=== PATIENT | male | born 1955 | race Caucasian/White ===

== ENCOUNTER 2016-09-08 10:23 | Inpatient (IN) | payer OTHER ==
[~2016-09-08] VITALS: Ht 188 cm; Wt 79.0 kg
[2016-09-08 10:27] VITALS: BP 144/83; PULSE 115; RESP 16; TEMP 97.8; O2SAT 98
[2016-09-08] MEDS ORDERED: SODIUM CHLOR 0.9% 1000 ML INJ 1,000 ML IV SCH (10:46)
--- NOTE | 2016-09-08 10:55 | PD ---
HPI Chief Complaint: GI Complaint Time Seen by Provider: 10:37 Travel History International Travel<30 days: No Contact w/Intl Traveler<30days: No Traveled to known affect area: No History of Present Illness HPI The patient is a 60-year-old male who presents to the emergency department for abdominal pain. The patient states he has a history of previous colostomy and constipation. The patient states he was eating well last week on Thursday, Thursday, Thursday. However, the patient swallowed a pill on and felt like the pill got stuck in the mid to distal esophageal area. The patient has some discomfort after that which has improved, however, is still present when he takes a deep breath. The patient is able to drink liquids and was able to eat crackers afterwards, however, notes decreased oral intake secondary to persistent abdominal pain. He also complains of constipation with decreased output through the colostomy bag, states his last output was last week on Thursday. The patient was seen in urgent care over the weekend and prescribed a medicine for constipation, however, he continues to be constipated. The patient's symptoms are moderate, he denies any associated nausea, vomiting, or diarrhea. PFSH Past Medical History Chemotherapy: Yes (COLON CA- colostomy) GERD: Yes Hypertension: Yes Social History Alcohol Use: Yes (daily) Tobacco Use: No Allergies-Medications (Allergen,Severity, Reaction): Coded Allergies: No Known Allergies (Unverified , 09/08/16) Reported Meds & Prescriptions Reported Meds & Active Scripts Active Reported Amlodipine (Amlodipine Besylate) 10 Mg Tab 10 Mg PO DAILY Review of Systems Except as stated in HPI: all other systems reviewed are Neg General / Constitutional: No: Fever Cardiovascular: Positive: Chest Pain or Discomfort (mid chest pain after swallowing a pill last ) Respiratory: No: Shortness of Breath Gastrointestinal: Positive: Abdominal Pain, Constipation, Changes in Bowel Habits, No: Nausea, Vomiting, Diarrhea Genitourinary: No: Decreased Urinary Output Neurologic: No: Dizziness Physical Exam Narrative GENERAL: Awake, alert, pleasant 60-year-old male who appears his stated age and is in no acute respiratory distress. SKIN: Warm and dry. HEAD: Atraumatic. Normocephalic. EYES: No injection or drainage. ENT: No nasal bleeding or discharge. Slightly dry mucous membranes. NECK: Trachea midline. No JVD. CARDIOVASCULAR: Regular rate and rhythm. No murmur appreciated. Heart rate in the 90s. RESPIRATORY: No accessory muscle use. Clear to auscultation. Breath sounds equal bilaterally. GASTROINTESTINAL: Abdomen soft, colostomy in place, no visible output in the colostomy bag. Apparent left-sided abdominal hernia. MUSCULOSKELETAL: No obvious deformities. No clubbing. No cyanosis. No edema. NEUROLOGICAL: Awake and alert. No obvious cranial nerve deficits. Motor grossly within normal limits. Normal speech. PSYCHIATRIC: Appropriate mood and affect; insight and judgment normal. Data Data Last Documented VS Vital Signs Date Time Temp Pulse Resp B/P Pulse Ox O2 Delivery O2 Flow Rate FiO2 09/08/16 12:15 100 09/08/16 10:39 18 09/08/16 10:27 97.8 115 144/83 Orders Complete Blood Count With Diff (09/08/16 10:46) Comprehensive Metabolic Panel (09/08/16 10:46) Lipase (09/08/16 10:46) Urinalysis - C+S If Indicated (09/08/16 10:46) Ct Abd/Pel W/O Iv Contrast (09/08/16 10:46) Iv Access Insert/Monitor (09/08/16 10:46) Ecg Monitoring (09/08/16 10:46) Oximetry (09/08/16 10:46) Sodium Chlor 0.9% 1000 Ml Inj (Ns 1000 M (09/08/16 10:46) Sodium Chloride 0.9% Flush (Ns Flush) (09/08/16 11:00) Morphine Inj (Morphine Inj) (09/08/16 12:30) Ondansetron Inj (Zofran Inj) (09/08/16 12:30) Sodium Chlor 0.9% 1000 Ml Inj (Ns 1000 M (09/08/16 12:30) Admit Order (Ed Use Only) (09/08/16 12:40) Labs Laboratory Tests Test 09/08/16 10:51 White Blood Count 23.2 TH/MM3 Red Blood Count 3.49 MIL/MM3 Hemoglobin 12.8 GM/DL Hematocrit 37.1 % Mean Corpuscular Volume 106.6 FL Mean Corpuscular Hemoglobin 36.6 PG Mean Corpuscular Hemoglobin 34.4 % Concent Red Cell Distribution Width 15.5 % Platelet Count 267 TH/MM3 Mean Platelet Volume 8.7 FL Neutrophils (%) (Auto) 88.6 % Lymphocytes (%) (Auto) 4.2 % Monocytes (%) (Auto) 7.0 % Eosinophils (%) (Auto) 0.1 % Basophils (%) (Auto) 0.1 % Neutrophils # (Auto) 20.6 TH/MM3 Lymphocytes # (Auto) 1.0 TH/MM3 Monocytes # (Auto) 1.6 TH/MM3 Eosinophils # (Auto) 0.0 TH/MM3 Basophils # (Auto) 0.0 TH/MM3 CBC Comment DIFF FINAL Differential Comment Sodium Level 130 MEQ/L Potassium Level 3.4 MEQ/L Chloride Level 94 MEQ/L Carbon Dioxide Level 24.3 MEQ/L Anion Gap 12 MEQ/L Blood Urea Nitrogen 6 MG/DL Creatinine 0.69 MG/DL Estimat Glomerular Filtration 116 ML/MIN Rate Random Glucose 126 MG/DL Calcium Level 8.4 MG/DL Total Bilirubin 0.6 MG/DL Aspartate Amino Transf 17 U/L (AST/SGOT) Alanine Aminotransferase 11 U/L (ALT/SGPT) Alkaline Phosphatase 143 U/L Total Protein 6.9 GM/DL Albumin 2.5 GM/DL Lipase 3814 U/L [facility] Medical Decision Making Medical Screen Exam Complete: Yes Emergency Medical Condition: Yes Medical Record Reviewed: Yes Interpretation(s) Laboratory Tests Test 09/08/16 10:51 White Blood Count 23.2 TH/MM3 Red Blood Count 3.49 MIL/MM3 Hemoglobin 12.8 GM/DL Hematocrit 37.1 % Mean Corpuscular Volume 106.6 FL Mean Corpuscular Hemoglobin 36.6 PG Mean Corpuscular Hemoglobin 34.4 % Concent Red Cell Distribution Width 15.5 % Platelet Count 267 TH/MM3 Mean Platelet Volume 8.7 FL Neutrophils (%) (Auto) 88.6 % Lymphocytes (%) (Auto) 4.2 % Monocytes (%) (Auto) 7.0 % Eosinophils (%) (Auto) 0.1 % Basophils (%) (Auto) 0.1 % Neutrophils # (Auto) 20.6 TH/MM3 Lymphocytes # (Auto) 1.0 TH/MM3 Monocytes # (Auto) 1.6 TH/MM3 Eosinophils # (Auto) 0.0 TH/MM3 Basophils # (Auto) 0.0 TH/MM3 CBC Comment DIFF FINAL Differential Comment Sodium Level 130 MEQ/L Potassium Level 3.4 MEQ/L Chloride Level 94 MEQ/L Carbon Dioxide Level 24.3 MEQ/L Anion Gap 12 MEQ/L Blood Urea Nitrogen 6 MG/DL Creatinine 0.69 MG/DL Estimat Glomerular Filtration 116 ML/MIN Rate Random Glucose 126 MG/DL Calcium Level 8.4 MG/DL Total Bilirubin 0.6 MG/DL Aspartate Amino Transf 17 U/L (AST/SGOT) Alanine Aminotransferase 11 U/L (ALT/SGPT) Alkaline Phosphatase 143 U/L Total Protein 6.9 GM/DL Albumin 2.5 GM/DL Lipase 3814 U/L Last Impressions Abdomen/Pelvis CT 09/08/16 1046 Signed Impressions: Service Date/Time: Thursday, September 08, 2016 11:55 - CONCLUSION: 1. Extensive inflammatory changes consistent with pancreatitis. There is some adjacent fluid present. Correlation with amylase/lipase levels are recommended. 2. Stomal hernia and left colostomy. No bowel obstruction. 3. Cecum is mildly prominent 4. Right pleural effusion and right basilar density likely atelectasis. Alvin Mccoy MD Differential Diagnosis Differential diagnosis includes esophageal foreign body, esophagitis, esophageal stricture, pancreatitis, gastritis, constipation, small bowel obstruction, ileus. Narrative Course IV was established, labs are drawn and sent, and the patient was placed on cardiac telemetry monitoring and continuous pulse oximetry monitoring. The patient was administered IV fluids. CT of the abdomen and pelvis was ordered to evaluate for possible partial small bowel obstruction. The patient's lipase was greater than 3800 consistent with pancreatitis. White count was elevated at 32.2. The patient was administered IV fluids, he originally declined pain medications. However, the patient was reassessed at 12:15 PM, he now had significant epigastric abdominal pain. Therefore, patient was administered morphine, Zofran, and a second liter of IV fluids. The patient denies any history of gallstones, however, does admit to drinking approximately 4 drinks per day, states he starts at 6 PM, and usually goes to bed at [address] results are consistent with pancreatitis, no evidence of obstruction. Patient will be admitted for acute pancreatitis for IV fluids and pain control. Physician Communication Physician Communication The on-call medical service was paged for admission. I discussed the patient with Dr. Puentes who agrees with admission. Diagnosis Primary Impression: Pancreatitis, alcoholic, acute Qualified Code: K85.20 - Alcohol-induced acute pancreatitis, unspecified complication status Admitting Information Admitting Physician Requests: Admit Condition: Stable Vern Shine MD Sep 08, 2016 10:54
[2016-09-08 11:12] LABS: AUTOMATED NEUTROPHIL # 20.6 TH/MM3 (1.8-7.7); BASOPHIL % 0.1 % (0.0-2.0); EOSINOPHIL % 0.1 % (0.0-4.0); HEMATOCRIT 37.1 % (39.0-51.0); HEMO FLAGS DIFF FINAL; LYMPH % 4.2 % (9.0-44.0); MEAN CELL VOLUME 106.6 FL (80.0-100.0); MEAN CORPUSCULAR HEMOGLOBIN 36.6 PG (27.0-34.0); MEAN CORPUSCULAR HGB CONC 34.4 % (32.0-36.0); NEUT % 88.6 % (16.0-70.0); PLATELET COUNT 267 TH/MM3 (150-450); RED BLOOD COUNT 3.49 MIL/MM3 (4.50-5.90); RED CELL DISTRIBUTION WIDTH 15.5 % (11.6-17.2); WHITE BLOOD COUNT 23.2 TH/MM3 (4.0-11.0)
[2016-09-08 11:30] LABS: ANION GAP 12 MEQ/L (5-15); AST (GOT) 17 U/L (15-37); BICARBONATE 24.3 MEQ/L (21.0-32.0); BLOOD UREA NITROGEN 6 MG/DL (7-18); CHLORIDE 94 MEQ/L (98-107); GLOMERULAR FILTRATION RATE 116 ML/MIN (>89); POTASSIUM 3.4 MEQ/L (3.5-5.1); SODIUM (NA) 130 MEQ/L (136-145)
[2016-09-08 11:34] LABS: ALKALINE PHOSPHATASE 143 U/L (45-117); ALT (GPT) 11 U/L (12-78); TOTAL BILIRUBIN ADULT 0.6 MG/DL (0.2-1.0)
--- NOTE | 2016-09-08 12:14 | RADRPT ---
EXAM DATE/TIME: 09/08/2016 11:55 [facility] COMPARISON: No previous studies available for comparison. INDICATIONS : Epigastric pain and constipation. ORAL CONTRAST: No oral contrast ingested. RADIATION DOSE: 5.92 CTDIvol (mGy) MEDICAL HISTORY : Carcinoma, colon. Hypertension. SURGICAL HISTORY : Colostomy. ENCOUNTER: Initial ACUITY: 1 week PAIN SCALE: 6/10 LOCATION: Epigastric pain. TECHNIQUE: Volumetric scanning of the abdomen and pelvis was performed. Using automated exposure control and ad justment of the mA and/or kV according to patient size, radiation dose was kept as low as reasonably achievable to obtain optimal diagnostic quality images. FINDINGS: LOWER LUNGS: Right pleural effusion and right basilar density.. LIVER: Homogeneous density without lesion. There is no dilation of the biliary tree. No calcified gallston es. SPLEEN: Normal size without lesion. PANCREAS: Significant phlegmon inflammatory changes along the pancreatic head body and neck consistent with aparicio creatitis. There is adjacent fluid. KIDNEYS: Normal in size and shape. There is no mass, stone, or hydronephrosis. ADRENAL GLANDS: Within normal limits. VASCULAR: There is no aortic aneurysm. BOWEL/MESENTERY: Left stomal hernia and left colostomy. Cecum is mildly prominent. No bowel obstruction. There is no f ree intraperitoneal air or fluid. ABDOMINAL WALL: Within normal limits. RETROPERITONEUM: There is no lymphadenopathy. BLADDER: No wall thickening or mass. REPRODUCTIVE: Within normal limits. INGUINAL: There is no lymphadenopathy or hernia. MUSCULOSKELETAL: Within normal limits for patient age. CONCLUSION: 1. Extensive inflammatory changes consistent with pancreatitis. There is some adjacent fluid present. Correlation with amylase/lipase levels are recommended. 2. Stomal hernia and left colostomy. No bowel obstruction. 3. Cecum is mildly prominent 4. Right pleural effusion and right basilar density likely atelectasis. Alvin Mccoy MD on September 08, 2016 at 12:08 Board Certified Radiologist. This report was verified electronically.
[2016-09-08 12:15] VITALS: O2SAT 100
[2016-09-08] MEDS ORDERED: AMLO10TA2 PO (12:17)
[2016-09-08] MEDS ORDERED: ONDANSETRON HCL 4 MG/2 ML VIAL IV PUSH ONE (12:30)
[2016-09-08] MEDS ORDERED: MORPHINE SULFATE 4 MG/ML INJ IV PUSH ONE (12:30)
[2016-09-08] MEDS ORDERED: SODIUM CHLOR 0.9% 1000 ML INJ 1,000 ML IV ONE (12:30)
[2016-09-08] MEDS ORDERED: ACETAMINOPHEN 325 MG TAB PO PRN (12:45)
[2016-09-08] MEDS ORDERED: ONDANSETRON HCL 4 MG/2 ML VIAL IV PUSH PRN ×2 (12:45→12:48)
[2016-09-08] MEDS ORDERED: POTASSIUM CHLORIDE INJ 20 MEQ in SODIUM CHLOR 0.9% 1000 ML INJ 1,000 ML IV SCH (12:45)
--- NOTE | 2016-09-08 13:02 | HHI.HP ---
[facility] Service [facility] ([place], [place])ists Primary Care Physician No Primary Care Physician Admission Diagnosis pancreatitis, leukocytosis, dehydration Diagnoses: (1) Pancreatitis, alcoholic, acute Diagnosis: Principal Chief Complaint: abdominal pain Travel History International Travel<30 Days: No Contact w/Intl Traveler <30 Da: No Traveled to Known Affected Are: No Sepsis Criteria SIRS Criteria (2 or more): Heart rate over 90, WBC > 74904, < 4000 or > 10% bands Criteria Outcome: Meets SIRS criteria History of Present Illness patient is a 60 y/o male with history of alcohol abuse who presented to ER with abdominal pain. he says that he drinks everyday. he started to have abdominal pain few days ago. pain is periumbilical with some radiation to epigastric area. pain is severe in intensity. he denies any nausea, vomiting, fever or chills. he says that he hasn't been eating as much past few days because of the pain. Review of Systems Constitutional: DENIES: Fever, Weight loss, Chills, Night Sweats Eyes: DENIES: Blurred vision, Diplopia, Vision loss, Double Vision Ears, nose, mouth, throat: DENIES: Tinnitus, Vertigo, Throat pain, Epistaxis Respiratory: DENIES: Apneas, Cough, Snoring, Wheezing, Hemoptysis, Sputum production, Shortness of breath Cardiovascular: DENIES: Chest pain, Palpitations, Syncope, Dyspnea on Exertion , PND, Lower Extremity Edema, Orthopnea, Claudication Gastrointestinal: COMPLAINS OF: Abdominal pain, DENIES: Black stools, Bloody stools, Constipation, Diarrhea, Nausea, Vomiting, Difficulty Swallowing, Anorexia Genitourinary: DENIES: Urinary frequency, Urgency, Hematuria, Dysuria Musculoskeletal: DENIES: Joint pain, Muscle aches, Stiffness, Joint Swelling Integumentary: DENIES: Rash Neurologic: DENIES: Abnormal gait, Headache, Localized weakness, Paresthesias, Seizures, Speech Problems, Tremor, Poor Balance Psychiatric: DENIES: Anxiety, Confusion, Mood changes, Depression, Hallucinations, Agitation, Suicidal Ideation, Homicidal Ideation, Delusions Past Family Social History Past Medical History hypertension colon cancer Past Surgical History colostomy eye surgery rotator cuff repair Reported Medications norvasc Allergies: Coded Allergies: No Known Allergies (Unverified , 09/08/16) Active Ordered Medications Current Medications Sodium Chloride (NS 1000 ml Inj) 1,000 ml @ 1,000 mls/hr Q1H IV Last administered on 09/08/16 12:12; Start 09/08/16 at 10:46; Stop 09/08/16 at 11:45 ; Status DC IV Flush (NS Flush) 2 ml UNSCH PRN IVF FLUSH AFTER USING IV ACCESS; Start 09/08 at 11:00 Morphine Sulfate (Morphine Inj) 4 mg ONCE ONCE IV PUSH Last administered on 12:27; Start 09/08/16 at 12:30; Stop 09/08/16 at 12:31; Status DC Ondansetron HCl 4 mg 4 mg ONCE ONCE IV PUSH Last administered on 09/08/16 12: 27; Start 09/08/16 at 12:30; Stop 09/08/16 at 12:31; Status DC Sodium Chloride 1,000 ml @ 999 mls/hr BOLUS ONCE IV ; Start 09/08/16 at 12:30 ; Stop 09/08/16 at 13:30 Potassium Chloride/Sodium Chloride (KCl Inj/NS 1000 ml Inj) 1,010 ml @ 125 mls/ hr Q8H5M IV ; Start 09/08/16 at 12:45; Status UNV Ondansetron HCl (Zofran Inj) 4 mg Q8HR PRN IV PUSH NAUSEA; Start 09/08/16 at 12 :45; Stop 09/08/16 at 12:48; Status DC Acetaminophen (Tylenol) 650 mg Q4H PRN PO FEVER; Start 09/08/16 at 12:45 Ondansetron HCl 4 mg 4 mg Q8H PRN IV PUSH NAUSEA; Start 09/08/16 at 12:48 Potassium Chloride/Sodium Chloride (NS + KCl 20 Meq Inj) 1,000 ml @ 125 mls/hr Q8H IV ; Start 09/08/16 at 13:00 Family History lung cancer in father/ melanoma in mother. Social History smokes a pack a day- drinks everyday. Physical Exam Vital Signs Vital Signs Date Time Temp Pulse Resp B/P Pulse Ox O2 Delivery O2 Flow Rate FiO2 2/27/17 12:15 100 09/08/16 10:39 18 09/08/16 10:27 97.8 115 16 144/83 98 Physical Exam GENERAL: This is a well-nourished, well-developed patient, in no apparent distress. SKIN: No rashes, ecchymoses or lesions. Cool and dry. HEAD: Atraumatic. Normocephalic. No temporal or scalp tenderness. EYES: Pupils equal round and reactive. Extraocular motions intact. No scleral icterus. No injection or drainage. ENT: Nose without bleeding, purulent drainage or septal hematoma. Throat without erythema, tonsillar hypertrophy or exudate. Uvula midline. Airway patent. NECK: Trachea midline. No JVD or lymphadenopathy. Supple, nontender, no meningeal signs. CARDIOVASCULAR: Regular rate and rhythm without murmurs, gallops, or rubs. RESPIRATORY: Clear to auscultation. Breath sounds equal bilaterally. No wheezes , rales, or rhonchi. GASTROINTESTINAL: Abdomen soft, generalized tenderness, colostomy in place.nondistended. No hepato-splenomegaly, or palpable masses. No guarding. MUSCULOSKELETAL: Extremities without clubbing, cyanosis, or edema. No joint tenderness, effusion, or edema noted. No calf tenderness. Negative Homans sign bilaterally. NEUROLOGICAL: Awake and alert. Cranial nerves II through XII intact. Motor and sensory grossly within normal limits. Five out of 5 muscle strength in all muscle groups. Normal speech. Laboratory Laboratory Tests Test 09/08/16 10:51 White Blood Count 23.2 Red Blood Count 3.49 Hemoglobin 12.8 Hematocrit 37.1 Mean Corpuscular Volume 106.6 Mean Corpuscular Hemoglobin 36.6 Mean Corpuscular Hemoglobin 34.4 Concent Red Cell Distribution Width 15.5 Platelet Count 267 Mean Platelet Volume 8.7 Neutrophils (%) (Auto) 88.6 Lymphocytes (%) (Auto) 4.2 Monocytes (%) (Auto) 7.0 Eosinophils (%) (Auto) 0.1 Basophils (%) (Auto) 0.1 Neutrophils # (Auto) 20.6 Lymphocytes # (Auto) 1.0 Monocytes # (Auto) 1.6 Eosinophils # (Auto) 0.0 Basophils # (Auto) 0.0 CBC Comment DIFF FINAL Differential Comment Sodium Level 130 Potassium Level 3.4 Chloride Level 94 Carbon Dioxide Level 24.3 Anion Gap 12 Blood Urea Nitrogen 6 Creatinine 0.69 Estimat Glomerular Filtration 116 Rate Random Glucose 126 Calcium Level 8.4 Total Bilirubin 0.6 Aspartate Amino Transf 17 (AST/SGOT) Alanine Aminotransferase 11 (ALT/SGPT) Alkaline Phosphatase 143 Total Protein 6.9 Albumin 2.5 Lipase 3814 Result Diagram: 09/08/16 1051 09/08/16 1051 Imaging Last Impressions Abdomen/Pelvis CT 09/08/16 1046 Signed Impressions: Service Date/Time: Thursday, September 08, 2016 11:55 - CONCLUSION: 1. Extensive inflammatory changes consistent with pancreatitis. There is some adjacent fluid present. Correlation with amylase/lipase levels are recommended. 2. Stomal hernia and left colostomy. No bowel obstruction. 3. Cecum is mildly prominent 4. Right pleural effusion and right basilar density likely atelectasis. Alvin Mccoy MD Assessment and Plan Assessment and Plan A/P - acute pancreatitis due to alcohol NPO for now- start o IV fluid and pain control- antiemetics as needed- repeat lipase in am will consult GI -hypokalemia/ hyponatremia; will replace and monitor -alcohol abuse; will start thiamine- ativan as needed- counselled on drinking cessation. -hypertension; resume home BP meds soon- vasotec as needed -history of colon cancer- s/p colostomy -DVT prophylaxis with SCD's Discussed Condition With ER physician and the patient. Physician Certification 2 Midnight Certification Type: Admission for Inpatient Services Order for Inpatient Services The services are ordered in accordance with Medicare regulations or non- Medicare payer requirements, as applicable. In the case of services not specified as inpatient-only, they are appropriately provided as inpatient services in accordance with the 2-midnight benchmark. Estimated LOS (days): 2 days is the estimated time the patient will need to remain in the hospital, assuming treatment plan goals are met and no additional complications. Post-Hospital Plan: Home Problem Qualifiers (1) Pancreatitis, alcoholic, acute: Qualified Code: K85.20 - Alcohol-induced acute pancreatitis, unspecified complication status Isabel Puentes MD Sep 08, 2016 13:02
[2016-09-08] MEDS ORDERED: ENALAPRILAT 1.25 MG/ML VIAL IV PUSH PRN (14:00)
[2016-09-08] MEDS ORDERED: LORazepam 2 MG/ML VIAL IV PUSH PRN (14:00)
[2016-09-08] MEDS: THIAMINE INJ 100 MG in SODIUM CHLORIDE 0.9% INJ 100 ML IV SCH (14:29)
[2016-09-08] MEDS: NS + KCL 20 MEQ INJ 1,000 ML IV SCH (14:30)
--- NOTE | 2016-09-08 15:41 | PD.CONS ---
HPI History of Present Illness This is a 60 year old male who came to the ER for evaluation of intermittent abdominal pain since last week. This is a sharp intermittent pain that radiates up to his chest, but no his back. It is aggravated by taking po and belching. He denies any associated nausea or vomiting. He reports that his weight has been stable and he was doing well up until last week. He does not usually have issues with reflux, but has been having frequent symptoms for the past week. He denies any diarrhea. He usually moves his bowels regularly, but states that he has not had a bowel movement in several days. His symptoms have been progressively getting worse and therefore he came to the ER for further evaluation. Abdomen/Pelvis CT (09/08/16)----> 1. Extensive inflammatory changes consistent with pancreatitis. There is some adjacent fluid present. Correlation with amylase/lipase levels are recommended. 2. Stomal hernia and left colostomy. No bowel obstruction. 3. Cecum is mildly prominent 4. Right pleural effusion and right basilar density likely atelectasis. GI was consulted for further evaluation. He denies any prior history of pancreatitis or issues with his gallbladder. He drinks 5-6 drinks per day. He denies any new medications, but states his symptoms did start after having dental work for which he received Novocaine for. He has a hx of colon cancer. This was treated with colon resection, chemotherapy, and radiation. He cannot recall when his last colonoscopy was, states years ago. He does not take any ibuprofen or aleve currently, but was taking Ebony prior to having his dental work. He denies any melena or hematochezia. (Trista Hernández) PFSH Past Medical History Hypertension Colon cancer, s/p chemotherapy, radiation, partial colectomy Large stomal hernia Past Surgical History Partial colectomy with colostomy Eye surgery Rotator cuff repair Colonoscopy (Trista Hernández) Coded Allergies: No Known Allergies (Unverified , 09/08/16) Medications Allergies Coded Allergies Type Severity Reaction Last Updated Verified No Known Allergies 09/08/16 No Active Scripts Medications Dose Route/Sig Days Date Category Amlodipine (Amlodipine Besylate) 10 Mg Tab 10 Mg PO DAILY 09/08/16 Reported Family History Significant for father having lung cancer Mother had melanoma Social History Smokes 1PPD for many years, Drinks 5-6 alcoholic drinks per day (Trista Hernández IRINEO) Review of Systems Constitutional: COMPLAINS OF: Fatigue, Change in appetite, DENIES: Fever, Weight loss, Chills Respiratory: DENIES: Cough, Shortness of breath Cardiovascular: COMPLAINS OF: Chest pain Gastrointestinal: COMPLAINS OF: Abdominal pain, Constipation, Heartburn, DENIES: Black stools, Bloody stools, Diarrhea, Nausea, Vomiting, Anorexia, Hematemesis Musculoskeletal: DENIES: Joint pain, Back pain Hematologic/lymphatic: DENIES: Bruising Neurologic: DENIES: Headache Psychiatric: DENIES: Confusion (Trista HernándezP) GI Exam Vitals I&O Vital Signs Date Time Temp Pulse Resp B/P Pulse Ox O2 Delivery O2 Flow Rate FiO2 09/08/16 12:15 100 09/08/16 10:39 18 09/08/16 10:27 97.8 115 16 144/83 98 Imaging Last Impressions Abdomen/Pelvis CT 09/08/16 1046 Signed Impressions: Service Date/Time: Thursday, September 08, 2016 11:55 - CONCLUSION: 1. Extensive inflammatory changes consistent with pancreatitis. There is some adjacent fluid present. Correlation with amylase/lipase levels are recommended. 2. Stomal hernia and left colostomy. No bowel obstruction. 3. Cecum is mildly prominent 4. Right pleural effusion and right basilar density likely atelectasis. Alvin Mccoy MD Laboratory Test 09/08/16 10:51 White Blood Count 23.2 TH/MM3 Red Blood Count 3.49 MIL/MM3 Hemoglobin 12.8 GM/DL Hematocrit 37.1 % Mean Corpuscular Volume 106.6 FL Mean Corpuscular Hemoglobin 36.6 PG Mean Corpuscular Hemoglobin 34.4 % Concent Red Cell Distribution Width 15.5 % Platelet Count 267 TH/MM3 Mean Platelet Volume 8.7 FL Neutrophils (%) (Auto) 88.6 % Lymphocytes (%) (Auto) 4.2 % Monocytes (%) (Auto) 7.0 % Eosinophils (%) (Auto) 0.1 % Basophils (%) (Auto) 0.1 % Neutrophils # (Auto) 20.6 TH/MM3 Lymphocytes # (Auto) 1.0 TH/MM3 Monocytes # (Auto) 1.6 TH/MM3 Eosinophils # (Auto) 0.0 TH/MM3 Basophils # (Auto) 0.0 TH/MM3 CBC Comment DIFF FINAL Differential Comment Sodium Level 130 MEQ/L Potassium Level 3.4 MEQ/L Chloride Level 94 MEQ/L Carbon Dioxide Level 24.3 MEQ/L Anion Gap 12 MEQ/L Blood Urea Nitrogen 6 MG/DL Creatinine 0.69 MG/DL Estimat Glomerular Filtration 116 ML/MIN Rate Random Glucose 126 MG/DL Calcium Level 8.4 MG/DL Total Bilirubin 0.6 MG/DL Aspartate Amino Transf 17 U/L (AST/SGOT) Alanine Aminotransferase 11 U/L (ALT/SGPT) Alkaline Phosphatase 143 U/L Total Protein 6.9 GM/DL Albumin 2.5 GM/DL Lipase 3814 U/L Physical Examination HEENT: Normocephalic; atraumatic; no jaundice. CHEST: CTA CARDIAC: RRR ABDOMEN: Soft, nondistended, mild epigastric tenderness; no hepatosplenomegaly ; left sided colostomy- no bowel movement in this. large stomal hernia EXTREMITIES: No clubbing, cyanosis, or edema. SKIN: Normal; no rash; no jaundice. OCCUP THERAPIST: No focal deficits; alert and oriented times three. (Trista Hernández) Assessment and Plan Plan ASSESSMENT: - Acute pancreatitis. Denies any prior hx of pancreatitis or gb issues. Drinks 5-6 drinks per day. Denies new medications, but does report that his symptoms becan shortly after taking Novocaine for dental work. He is not currently taking NSAIDs but was taking Ebony ASA prior to his dental work. Abdomen/Pelvis CT (09/08/16)----> 1. Extensive inflammatory changes consistent with pancreatitis. There is some adjacent fluid present. Correlation with amylase/lipase levels are recommended. 2. Stomal hernia and left colostomy. No bowel obstruction. 3. Cecum is mildly prominent 4. Right pleural effusion and right basilar density likely atelectasis. Lipase 3814. IVF. PPI. NPO. - GERD. PPI - Prominent cecum on CT scan in patient with hx of colon cancer in 1999. S/P chemo/radiation/partial colectomy at that time. Has not had colonoscopy in many years. - Leukocytosis. WBC 23.2. Afebrile with this. - Anemia. 12.8/37.1. - Hyponatremia, Hypokalemia. Na+ 130, K+ 3.4. - Mild elevation alkaline phosphatase. T. 0.6, AST 17, ALT 11, Alk Phosph 143. PLAN: - NPO - Cont. IVF - Add Protonix 40mg IV daily - Cont. Zofran prn - Triglyceride level - CBC, CMP, Lipase in am - Will need colonoscopy, timing as far as outpatient vs. inpatient to be determined - Supportive care - Further recommendations to follow based on results of above - Pt seen and examined by Dr. Sykes and myself and this note is written on his behalf (Trista Hernández) Physician Comments Patient seen and examined Agree with above Continue with current supportive care Monitor labs Most likely cause of pancreatitis is his alcohol intake and patient is advised to stop alcohol (Khang Sykes MD) Trista Hernández Sep 08, 2016 15:41 Khang Sykes MD Sep 09, 2016 00:11
[2016-09-08 16:31] VITALS: BP 148/82; PULSE 82; RESP 16; O2SAT 97
[2016-09-08 17:00] VITALS: BP 130/78; PULSE 75; RESP 20; TEMP 100.6; O2SAT 96
[2016-09-08] MEDS: PANTOPRAZOLE SODIUM 40 MG VIAL IV PUSH SCH (17:13)
[2016-09-08] MEDS: HYDROmorphone HCL PF 1 MG/ML VIAL IV PUSH PRN ×2 (17:13→21:04)
[2016-09-08] MEDS ORDERED: AMIT8CAP6 PO (17:42)
[2016-09-08 18:42] LABS: BLOOD, URINE NEG (NEG); COMMENT (UR) CULT NOT INDICATED; CULTURE IF INDICATED CULT NOT INDICATED; GLUCOSE,URINE NEG (NEG); HYALINE CAST, URINE 1 /lpf (RARE); KETONE, URINE 150 mg/dL (NEG); MUCUS URINE FEW /lpf (OCC); NITRITE,URINE NEG (NEG); PH, URINE 6.5 (5.0-8.5); SQUAMOUS EPITHELIAL CELL URINE <1 /hpf (0-5); URINE COLOR YELLOW (YELLW/STRAW)
[2016-09-08 20:00] VITALS: BP 129/72; PULSE 79; RESP 20; TEMP 99.8; O2SAT 93
[2016-09-09] VITALS: BP 124/63; PULSE 74; RESP 20; TEMP 100.4; O2SAT 93
[2016-09-09] MEDS: NS + KCL 20 MEQ INJ 1,000 ML IV SCH ×4 (01:38→21:32)
[2016-09-09] MEDS: HYDROmorphone HCL PF 1 MG/ML VIAL IV PUSH PRN ×6 (01:39→23:24)
[2016-09-09 04:00] VITALS: BP 121/72; PULSE 70; RESP 20; TEMP 100.8; O2SAT 94
[2016-09-09 08:00] VITALS: BP 135/76; PULSE 78; RESP 16; TEMP 99.6; O2SAT 91
[2016-09-09] MEDS: THIAMINE INJ 100 MG in SODIUM CHLORIDE 0.9% INJ 100 ML IV SCH (08:55)
[2016-09-09] MEDS ORDERED: INFLUENZA VIRUS VACCINE (QUADRIVALENT) 0.5 ML SYR IM ONE (10:00)
[2016-09-09] MEDS ORDERED: PNEUMOCOCCAL POLYVALENT INJ 25 MCG/0.5 ML SYR IM ONE (10:00)
[2016-09-09 10:18] LABS: AUTOMATED NEUTROPHIL # 14.2 TH/MM3 (1.8-7.7); BASOPHIL % 0.1 % (0.0-2.0); EOSINOPHIL % 0.2 % (0.0-4.0); HEMATOCRIT 33.2 % (39.0-51.0); HEMO FLAGS DIFF FINAL; LYMPH % 5.3 % (9.0-44.0); LYMPHOCYTE # 0.9 TH/MM3 (1.0-4.8); MEAN CELL VOLUME 108.9 FL (80.0-100.0); MEAN CORPUSCULAR HEMOGLOBIN 35.4 PG (27.0-34.0); MEAN CORPUSCULAR HGB CONC 32.5 % (32.0-36.0); MONO % 6.8 % (0.0-8.0); NEUT % 87.6 % (16.0-70.0); PLATELET COUNT 250 TH/MM3 (150-450); RED BLOOD COUNT 3.05 MIL/MM3 (4.50-5.90); RED CELL DISTRIBUTION WIDTH 15.8 % (11.6-17.2); WHITE BLOOD COUNT 16.2 TH/MM3 (4.0-11.0)
[2016-09-09 10:53] LABS: BICARBONATE 24.2 MEQ/L (21.0-32.0); POTASSIUM 3.7 MEQ/L (3.5-5.1)
[2016-09-09 12:00] VITALS: BP 121/72; PULSE 76; RESP 12; TEMP 98.5; O2SAT 94
--- NOTE | 2016-09-09 12:07 | HHI.PR ---
Subjective Remarks still with abdominal pain. no nausea or vomiting but noted that had fever earlier. Objective Vitals Vital Signs Date Time Temp Pulse Resp B/P Pulse Ox O2 Delivery O2 Flow Rate FiO2 09/09/16 11:51 18 09/09/16 08:54 18 09/09/16 08:00 99.6 78 16 135/76 91 09/09/16 04:00 100.8 70 20 121/72 94 09/09/16 00:00 100.4 74 20 124/63 93 09/08/16 20:00 99.8 79 20 129/72 93 09/08/16 17:00 100.6 75 20 130/78 96 09/08/16 16:31 82 16 148/82 97 Room Air 09/08/16 12:15 100 I/O 09/08/16 09/08/16 09/08/16 09/09/16 09/09/16 09/09/16 07:00 15:00 23:00 07:00 15:00 23:00 Intake Total 339 ml 971 ml Balance 339 ml 971 ml Intake IV Total 339 ml 971 ml # Voids 1 1 # Bowel Movements 0 0 Result Diagram: 09/09/16 0920 09/09/16 0920 Imaging Last Impressions Abdomen/Pelvis CT 09/08/16 1046 Signed Impressions: Service Date/Time: Thursday, September 08, 2016 11:55 - CONCLUSION: 1. Extensive inflammatory changes consistent with pancreatitis. There is some adjacent fluid present. Correlation with amylase/lipase levels are recommended. 2. Stomal hernia and left colostomy. No bowel obstruction. 3. Cecum is mildly prominent 4. Right pleural effusion and right basilar density likely atelectasis. Alvin Mccoy MD Objective Remarks GENERAL: This is a well-nourished, well-developed patient, in no apparent distress. CARDIOVASCULAR: Regular rate and regular rhythm without murmurs, gallops, or rubs. RESPIRATORY: Clear to auscultation. Breath sounds equal bilaterally. No wheezes , rales, or rhonchi. GASTROINTESTINAL: Abdomen soft, generalized tenderness, nondistended. Normal, active bowel sounds MUSCULOSKELETAL: Extremities without clubbing, cyanosis, or edema. NEURO: Alert & Oriented x4 to person, place, time, situation. Moves all ext x4 Procedures none Medications and IVs Current Medications Sodium Chloride (NS 1000 ml Inj) 1,000 ml @ 1,000 mls/hr Q1H IV Last administered on 09/08/16 12:12; Start 09/08/16 at 10:46; Stop 09/08/16 at 11:45 ; Status DC IV Flush (NS Flush) 2 ml UNSCH PRN IVF FLUSH AFTER USING IV ACCESS; Start 09/08 at 11:00 Morphine Sulfate (Morphine Inj) 4 mg ONCE ONCE IV PUSH Last administered on 12:27; Start 09/08/16 at 12:30; Stop 09/08/16 at 12:31; Status DC Ondansetron HCl 4 mg 4 mg ONCE ONCE IV PUSH Last administered on 09/08/16 12: 27; Start 09/08/16 at 12:30; Stop 09/08/16 at 12:31; Status DC Sodium Chloride 1,000 ml @ 999 mls/hr BOLUS ONCE IV Last administered on 09/08 13:41; Start 09/08/16 at 12:30; Stop 09/08/16 at 13:30; Status DC Potassium Chloride/Sodium Chloride (KCl Inj/NS 1000 ml Inj) 1,010 ml @ 125 mls/ hr Q8H5M IV ; Start 09/08/16 at 12:45; Status UNV Ondansetron HCl (Zofran Inj) 4 mg Q8HR PRN IV PUSH NAUSEA; Start 09/08/16 at 12 :45; Stop 09/08/16 at 12:48; Status DC Acetaminophen (Tylenol) 650 mg Q4H PRN PO FEVER Last administered on 09/09/16 06:01; Start 09/08/16 at 12:45 Ondansetron HCl 4 mg 4 mg Q8H PRN IV PUSH NAUSEA; Start 09/08/16 at 12:48 Potassium Chloride/Sodium Chloride (NS + KCl 20 Meq Inj) 1,000 ml @ 125 mls/hr Q8H IV Last administered on 09/09/16 08:54; Start 09/08/16 at 13:00 Hydromorphone HCl (Dilaudid Pf Inj) 0.5 mg Q4H PRN IV PUSH PAIN < 5; Start at 13:00 Hydromorphone HCl (Dilaudid Pf Inj) 1 mg Q4H PRN IV PUSH PAIN > 5 Last administered on 09/09/16 11:01; Start 09/08/16 at 13:00 Lorazepam 1 mg 1 mg Q4H PRN IV PUSH ANXIETY; Start 09/08/16 at 14:00 Thiamine HCl/ Sodium Chloride (Thiamine Inj/NS Inj) 101 ml @ 101 mls/hr DAILY IV Last administered on 09/09/16 08:55; Start 09/08/16 at 15:00 Enalaprilat (Vasotec Inj) 1.25 mg Q8H PRN IV PUSH SBP> OR = 180, DBP> OR = 100 ; Start 09/08/16 at 14:00 Pantoprazole Sodium (Protonix Inj) 40 mg Q24H IV PUSH Last administered on 09/08 17:13; Start 09/08/16 at 16:00 Influenza Virus Vaccine (Flu (Quadrivalent) Vaccine Inj) 0.5 ml ONCE ONCE IM Last administered on 09/09/16 08:43; Start 09/09/16 at 10:00; Stop 09/09/16 at 10:01; Status DC Pneumococcal Polyvalent Vaccine (Pneumovax-23 Inj) 25 mcg ONCE ONCE IM Last administered on 09/09/16 08:48; Start 09/09/16 at 10:00; Stop 09/09/16 at 10:01 ; Status DC A/P Assessment and Plan A/P - acute pancreatitis due to alcohol NPO for now- continue IV fluid and pain control- antiemetics as needed- repeat lipase in am GI consult appreciated. -leukocytosis/ fever due to pancreatitis- will monitor; CBC in am. -hypokalemia/ hyponatremia; replaced- will monitor -alcohol abuse; continue thiamine- ativan as needed- counselled on drinking cessation. -hypertension; - vasotec as needed -history of colon cancer- s/p colostomy -DVT prophylaxis with SCD's Isabel Puentes MD Sep 09, 2016 12:07
--- NOTE | 2016-09-09 12:49 | HHI.GIFU ---
Subjective Remarks patient comfortable in bed, no pain, no nausea or vomiting. (AnnaReese IRINEO) Objective Vitals I&O Vital Signs Date Time Temp Pulse Resp B/P Pulse Ox O2 Delivery O2 Flow Rate FiO2 09/09/16 12:00 98.5 76 12 121/72 94 09/09/16 11:51 18 09/09/16 08:54 18 09/09/16 08:00 99.6 78 16 135/76 91 09/09/16 04:00 100.8 70 20 121/72 94 09/09/16 00:00 100.4 74 20 124/63 93 09/08/16 20:00 99.8 79 20 129/72 93 09/08/16 17:00 100.6 75 20 130/78 96 09/08/16 16:31 82 16 148/82 97 Room Air I/O 09/08/16 09/08/16 09/08/16 09/09/16 09/09/16 09/09/16 07:00 15:00 23:00 07:00 15:00 23:00 Intake Total 339 ml 971 ml Balance 339 ml 971 ml Intake IV Total 339 ml 971 ml # Voids 1 1 # Bowel Movements 0 0 Laboratory Laboratory Tests Test 09/08/16 09/09/16 18:25 09:20 Urine Color YELLOW Urine Turbidity CLEAR Urine pH 6.5 Urine Specific [place] 1.013 Urine Protein 30 Urine Glucose (UA) NEG Urine Ketones 150 Urine Occult Blood NEG Urine Nitrite NEG Urine Bilirubin NEG Urine Urobilinogen LESS THAN 2.0 Urine Leukocyte Esterase NEG Urine WBC 1 Urine Squamous Epithelial <1 Cells Urine Hyaline Casts 1 Urine Mucus FEW Microscopic Urinalysis Comment CULT NOT INDICATED White Blood Count 16.2 Red Blood Count 3.05 Hemoglobin 10.8 Hematocrit 33.2 Mean Corpuscular Volume 108.9 Mean Corpuscular Hemoglobin 35.4 Mean Corpuscular Hemoglobin 32.5 Concent Red Cell Distribution Width 15.8 Platelet Count 250 Mean Platelet Volume 8.9 Neutrophils (%) (Auto) 87.6 Lymphocytes (%) (Auto) 5.3 Monocytes (%) (Auto) 6.8 Eosinophils (%) (Auto) 0.2 Basophils (%) (Auto) 0.1 Neutrophils # (Auto) 14.2 Lymphocytes # (Auto) 0.9 Monocytes # (Auto) 1.1 Eosinophils # (Auto) 0.0 Basophils # (Auto) 0.0 CBC Comment DIFF FINAL Differential Comment Sodium Level 139 Potassium Level 3.7 Chloride Level 105 Carbon Dioxide Level 24.2 Anion Gap 10 Blood Urea Nitrogen 6 Creatinine 0.35 Estimat Glomerular Filtration 254 Rate Random Glucose 79 Calcium Level 7.9 Lipase 3692 Imaging Last Impressions Abdomen/Pelvis CT 09/08/16 1046 Signed Impressions: Service Date/Time: Thursday, September 08, 2016 11:55 - CONCLUSION: 1. Extensive inflammatory changes consistent with pancreatitis. There is some adjacent fluid present. Correlation with amylase/lipase levels are recommended. 2. Stomal hernia and left colostomy. No bowel obstruction. 3. Cecum is mildly prominent 4. Right pleural effusion and right basilar density likely atelectasis. Alvin Mccoy MD Physical Exam HEENT: Pupils round and reactive to light; normocephalic; atraumatic; no jaundice. Throat is clear. CHEST: CTA CARDIAC: Regular rate and rhythm ABDOMEN: Soft, nondistended, mild epigastric tenderness; no hepatosplenomegaly ; left sided colostomy- no bowel movement in this. large stomal hernia EXTREMITIES: No clubbing, cyanosis, or edema. SKIN: Normal; no rash; no jaundice. DEPLOYMENT ENGINEER: No focal deficits; alert and oriented times three. (Reese Castillo) Assessment and Plan Plan ASSESSMENT: - Acute pancreatitis/first episode. slight improvement in lipase 3814--->3692 Denies any prior hx of pancreatitis or gb issues. Triglycerides normal. Drinks 5-6 drinks per day. Denies new medications, but does report that his symptoms began shortly after taking Novocaine for dental work. He is not currently taking NSAIDs but was taking Ebony ASA prior to his dental work. Abdomen/Pelvis CT (09/08/16)----> 1. Extensive inflammatory changes consistent with pancreatitis. There is some adjacent fluid present. Correlation with amylase/lipase levels are recommended. 2. Stomal hernia and left colostomy. No bowel obstruction. 3. Cecum is mildly prominent 4. Right pleural effusion and right basilar density likely atelectasis. IVF. PPI. NPO. - GERD. PPI - Prominent cecum on CT scan in patient with hx of colon cancer in 1999. S/P chemo/radiation/partial colectomy at that time. Has not had colonoscopy in many years. - Leukocytosis. improving. T max 100.8 - Anemia. drop in h&h could be dilutional, no bleeding reported - Hyponatremia, Hypokalemia. replaced - Mild elevation alkaline phosphatase. T. 0.6, AST 17, ALT 11, Alk Phosph 143. PLAN: - NPO for now - Cont. IVF - Add Protonix 40mg IV daily - Cont. Zofran prn - CBC, Lipase in am - Will need EGD/colonoscopy, timing as far as outpatient vs. inpatient to be determined - Supportive care - Further recommendations to follow based on results of above - Pt seen and examined by Dr. Sykes and myself and this note is written on his behalf (Reese Castillo) Physician Comments Patient seen and examined Agree with above Continue with current supportive care Monitor labs (Khang Sykes MD) Reese Castillo Sep 09, 2016 12:49 Khang Sykes MD Sep 09, 2016 20:58
[2016-09-09 16:00] VITALS: BP 124/72; PULSE 85; RESP 12; TEMP 100.5; O2SAT 92
[2016-09-09] MEDS: PANTOPRAZOLE SODIUM 40 MG VIAL IV PUSH SCH (16:29)
[2016-09-09 20:00] VITALS: BP 144/74; PULSE 84; RESP 20; TEMP 100.3; O2SAT 94
[2016-09-10] VITALS: BP 138/70; PULSE 78; RESP 20; TEMP 99.6; O2SAT 94
[2016-09-10] MEDS: HYDROmorphone HCL PF 1 MG/ML VIAL IV PUSH PRN ×5 (03:41→20:41)
[2016-09-10] MEDS: NS + KCL 20 MEQ INJ 1,000 ML IV SCH ×3 (03:42→20:41)
[2016-09-10 04:00] VITALS: BP 116/72; PULSE 77; RESP 20; TEMP 99.2; O2SAT 93
[2016-09-10 07:28] LABS: AUTOMATED NEUTROPHIL # 13.3 TH/MM3 (1.8-7.7); BASOPHIL % 0.3 % (0.0-2.0); EOSINOPHIL % 0.2 % (0.0-4.0); HEMATOCRIT 32.3 % (39.0-51.0); HEMO FLAGS DIFF FINAL; LYMPH % 7.2 % (9.0-44.0); LYMPHOCYTE # 1.1 TH/MM3 (1.0-4.8); MEAN CELL VOLUME 109.2 FL (80.0-100.0); MEAN CORPUSCULAR HEMOGLOBIN 35.7 PG (27.0-34.0); MEAN CORPUSCULAR HGB CONC 32.7 % (32.0-36.0); MONO % 6.9 % (0.0-8.0); NEUT % 85.4 % (16.0-70.0); PLATELET COUNT 279 TH/MM3 (150-450); RED BLOOD COUNT 2.95 MIL/MM3 (4.50-5.90); RED CELL DISTRIBUTION WIDTH 16.2 % (11.6-17.2); WHITE BLOOD COUNT 15.6 TH/MM3 (4.0-11.0)
[2016-09-10 08:00] VITALS: BP 132/68; PULSE 73; RESP 18; TEMP 98.5; O2SAT 96
[2016-09-10] MEDS: THIAMINE INJ 100 MG in SODIUM CHLORIDE 0.9% INJ 100 ML IV SCH (09:33)
--- NOTE | 2016-09-10 10:32 | HHI.PR ---
Subjective Remarks in no distress. abdominal pain seems to be improving slowly. no nausea or vomiting. afebrile this morning. Objective Vitals Vital Signs Date Time Temp Pulse Resp B/P Pulse Ox O2 Delivery O2 Flow Rate FiO2 09/10/16 08:40 18 09/10/16 08:00 98.5 73 18 132/68 96 09/10/16 04:00 99.2 77 20 116/72 93 09/10/16 00:00 99.6 78 20 138/70 94 09/09/16 20:00 100.3 84 20 144/74 94 09/09/16 16:00 100.5 85 12 124/72 92 09/09/16 12:00 98.5 76 12 121/72 94 I/O 09/09/16 09/09/16 09/09/16 09/10/16 09/10/16 09/10/16 07:00 15:00 23:00 07:00 15:00 23:00 Intake Total 971 ml 1673 ml 960 ml Balance 971 ml 1673 ml 960 ml Intake IV Total 971 ml 1673 ml 960 ml # Voids 1 2 3 # Bowel Movements 0 0 0 Result Diagram: 09/10/16 0630 09/09/16 0920 Imaging Last Impressions Abdomen/Pelvis CT 09/08/16 1046 Signed Impressions: Service Date/Time: Thursday, September 08, 2016 11:55 - CONCLUSION: 1. Extensive inflammatory changes consistent with pancreatitis. There is some adjacent fluid present. Correlation with amylase/lipase levels are recommended. 2. Stomal hernia and left colostomy. No bowel obstruction. 3. Cecum is mildly prominent 4. Right pleural effusion and right basilar density likely atelectasis. Alvin Mccoy MD Objective Remarks GENERAL: This is a well-nourished, well-developed patient, in no apparent distress. CARDIOVASCULAR: Regular rate and regular rhythm without murmurs, gallops, or rubs. RESPIRATORY: Clear to auscultation. Breath sounds equal bilaterally. No wheezes , rales, or rhonchi. GASTROINTESTINAL: Abdomen soft, generalized tenderness, nondistended. Normal, active bowel sounds MUSCULOSKELETAL: Extremities without clubbing, cyanosis, or edema. NEURO: Alert & Oriented x4 to person, place, time, situation. Moves all ext x4 Procedures none Medications and IVs Current Medications Sodium Chloride (NS 1000 ml Inj) 1,000 ml @ 1,000 mls/hr Q1H IV Last administered on 09/08/16 12:12; Start 09/08/16 at 10:46; Stop 09/08/16 at 11:45 ; Status DC IV Flush (NS Flush) 2 ml UNSCH PRN IVF FLUSH AFTER USING IV ACCESS; Start 09/08 at 11:00 Morphine Sulfate (Morphine Inj) 4 mg ONCE ONCE IV PUSH Last administered on 12:27; Start 09/08/16 at 12:30; Stop 09/08/16 at 12:31; Status DC Ondansetron HCl 4 mg 4 mg ONCE ONCE IV PUSH Last administered on 09/08/16 12: 27; Start 09/08/16 at 12:30; Stop 09/08/16 at 12:31; Status DC Sodium Chloride 1,000 ml @ 999 mls/hr BOLUS ONCE IV Last administered on 09/08 13:41; Start 09/08/16 at 12:30; Stop 09/08/16 at 13:30; Status DC Potassium Chloride/Sodium Chloride (KCl Inj/NS 1000 ml Inj) 1,010 ml @ 125 mls/ hr Q8H5M IV ; Start 09/08/16 at 12:45; Status UNV Ondansetron HCl (Zofran Inj) 4 mg Q8HR PRN IV PUSH NAUSEA; Start 09/08/16 at 12 :45; Stop 09/08/16 at 12:48; Status DC Acetaminophen (Tylenol) 650 mg Q4H PRN PO FEVER Last administered on 09/09/16 06:01; Start 09/08/16 at 12:45 Ondansetron HCl 4 mg 4 mg Q8H PRN IV PUSH NAUSEA; Start 09/08/16 at 12:48 Potassium Chloride/Sodium Chloride (NS + KCl 20 Meq Inj) 1,000 ml @ 125 mls/hr Q8H IV Last administered on 09/10/16 03:42; Start 09/08/16 at 13:00 Hydromorphone HCl (Dilaudid Pf Inj) 0.5 mg Q4H PRN IV PUSH PAIN < 5; Start at 13:00 Hydromorphone HCl (Dilaudid Pf Inj) 1 mg Q4H PRN IV PUSH PAIN > 5 Last administered on 09/10/16 07:38; Start 09/08/16 at 13:00 Lorazepam 1 mg 1 mg Q4H PRN IV PUSH ANXIETY; Start 09/08/16 at 14:00 Thiamine HCl/ Sodium Chloride (Thiamine Inj/NS Inj) 101 ml @ 101 mls/hr DAILY IV Last administered on 09/10/16 09:33; Start 09/08/16 at 15:00 Enalaprilat (Vasotec Inj) 1.25 mg Q8H PRN IV PUSH SBP> OR = 180, DBP> OR = 100 ; Start 09/08/16 at 14:00 Pantoprazole Sodium (Protonix Inj) 40 mg Q24H IV PUSH Last administered on 09/09 16:29; Start 09/08/16 at 16:00 Influenza Virus Vaccine (Flu (Quadrivalent) Vaccine Inj) 0.5 ml ONCE ONCE IM Last administered on 09/09/16 08:43; Start 09/09/16 at 10:00; Stop 09/09/16 at 10:01; Status DC Pneumococcal Polyvalent Vaccine (Pneumovax-23 Inj) 25 mcg ONCE ONCE IM Last administered on 09/09/16 08:48; Start 09/09/16 at 10:00; Stop 09/09/16 at 10:01 ; Status DC A/P Assessment and Plan A/P - acute pancreatitis due to alcohol NPO for now- continue IV fluid and pain control- antiemetics as needed- repeat lipase in am will likely advance the diet soon. GI following. -leukocytosis/ fever due to pancreatitis- will monitor. -hypokalemia/ hyponatremia; replaced- will monitor -alcohol abuse; continue thiamine- ativan as needed- counselled on drinking cessation. -hypertension; - vasotec as needed for now -history of colon cancer- s/p colostomy -DVT prophylaxis with SCD's Isabel Puentes MD Sep 10, 2016 10:32
[2016-09-10 12:00] VITALS: BP 135/74; PULSE 79; RESP 20; TEMP 97.1; O2SAT 96
--- NOTE | 2016-09-10 14:42 | HHI.GIFU ---
Subjective Remarks Patient is resting in bed, with some mild epigastric pain. (Reese Castillo SPECIAL POPULATION PARAPROFESSIONAL) Objective Vitals I&O Vital Signs Date Time Temp Pulse Resp B/P Pulse Ox O2 Delivery O2 Flow Rate FiO2 09/10/16 12:00 97.1 79 20 135/74 96 09/10/16 08:40 18 09/10/16 08:00 98.5 73 18 132/68 96 09/10/16 04:00 99.2 77 20 116/72 93 09/10/16 00:00 99.6 78 20 138/70 94 09/09/16 20:00 100.3 84 20 144/74 94 09/09/16 16:00 100.5 85 12 124/72 92 I/O 09/09/16 09/09/16 09/09/16 09/10/16 09/10/16 09/10/16 07:00 15:00 23:00 07:00 15:00 23:00 Intake Total 971 ml 1673 ml 960 ml Balance 971 ml 1673 ml 960 ml Intake IV Total 971 ml 1673 ml 960 ml # Voids 1 2 3 # Bowel Movements 0 0 0 Laboratory Laboratory Tests Test 09/10/16 06:30 White Blood Count 15.6 Red Blood Count 2.95 Hemoglobin 10.6 Hematocrit 32.3 Mean Corpuscular Volume 109.2 Mean Corpuscular Hemoglobin 35.7 Mean Corpuscular Hemoglobin 32.7 Concent Red Cell Distribution Width 16.2 Platelet Count 279 Mean Platelet Volume 8.6 Neutrophils (%) (Auto) 85.4 Lymphocytes (%) (Auto) 7.2 Monocytes (%) (Auto) 6.9 Eosinophils (%) (Auto) 0.2 Basophils (%) (Auto) 0.3 Neutrophils # (Auto) 13.3 Lymphocytes # (Auto) 1.1 Monocytes # (Auto) 1.1 Eosinophils # (Auto) 0.0 Basophils # (Auto) 0.0 CBC Comment DIFF FINAL Differential Comment Lipase 3140 Imaging Last Impressions Abdomen/Pelvis CT 09/08/16 1046 Signed Impressions: Service Date/Time: Thursday, September 08, 2016 11:55 - CONCLUSION: 1. Extensive inflammatory changes consistent with pancreatitis. There is some adjacent fluid present. Correlation with amylase/lipase levels are recommended. 2. Stomal hernia and left colostomy. No bowel obstruction. 3. Cecum is mildly prominent 4. Right pleural effusion and right basilar density likely atelectasis. Alvin Mccoy MD Physical Exam HEENT: Pupils round and reactive to light; normocephalic; atraumatic; no jaundice. Throat is clear. CHEST: CTA CARDIAC: Regular rate and rhythm ABDOMEN: Soft, nondistended, mild epigastric tenderness; no hepatosplenomegaly ; left sided colostomy- no bowel movement in this. large stomal hernia EXTREMITIES: No clubbing, cyanosis, or edema. SKIN: Normal; no rash; no jaundice. METER TECHNICIAN: No focal deficits; alert and oriented times three. (Anna,Reese SPECIAL POPULATION PARAPROFESSIONAL) Assessment and Plan Plan ASSESSMENT: - Acute pancreatitis/first episode.no significant improvement in lipase 3814--- >3140 Denies any prior hx of pancreatitis or gb issues. Triglycerides normal. Drinks 5-6 drinks per day. Denies new medications, but does report that his symptoms began shortly after taking Novocaine for dental work. He is not currently taking NSAIDs but was taking Ebony ASA prior to his dental work. Abdomen/Pelvis CT (09/08/16)----> 1. Extensive inflammatory changes consistent with pancreatitis. There is some adjacent fluid present. Correlation with amylase/lipase levels are recommended. 2. Stomal hernia and left colostomy. No bowel obstruction. 3. Cecum is mildly prominent 4. Right pleural effusion and right basilar density likely atelectasis. IVF. PPI. NPO. - GERD. PPI - Prominent cecum on CT scan in patient with hx of colon cancer in 1999. S/P chemo/radiation/partial colectomy at that time. Has not had colonoscopy in many years. - Leukocytosis. improving. - Anemia. drop in h&h could be dilutional, no bleeding reported - Hyponatremia, Hypokalemia. replaced - Mild elevation alkaline phosphatase. T. 0.6, AST 17, ALT 11, Alk Phosph 143. PLAN: - NPO for now - Persistent elevation in lipase, will order MRCP - IGG- 4 - Will need EGD to r/o PUD, patient will think about it - Cont. IVF - Add Protonix 40mg IV daily - Cont. Zofran prn - Lipase in am - Will need colonoscopy, for f/u on imaging, this could be done as an OP - Supportive care - Further recommendations to follow based on results of above - Pt seen and examined by Dr. Sykes and myself and this note is written on his behalf (Reese Castillo) Physician Comments Patient seen and examined Agree with above Continue with current supportive care Monitor labs (Khang Sykes MD) Reese Castillo Sep 10, 2016 14:42 Khang Sykes MD Sep 10, 2016 21:52
[2016-09-10 16:00] VITALS: BP 133/71; PULSE 78; RESP 18; TEMP 98.9; O2SAT 95
[2016-09-10] MEDS: PANTOPRAZOLE SODIUM 40 MG VIAL IV PUSH SCH (16:17)
[2016-09-10 20:12] VITALS: BP 132/73; PULSE 74; RESP 16; TEMP 98.6; O2SAT 95
[2016-09-11 00:20] VITALS: BP 136/67; PULSE 76; RESP 16; TEMP 98.7; O2SAT 95
[2016-09-11] MEDS: HYDROmorphone HCL PF 1 MG/ML VIAL IV PUSH PRN ×6 (00:45→22:38)
[2016-09-11] MEDS: NS + KCL 20 MEQ INJ 1,000 ML IV SCH ×3 (04:46→21:00)
[2016-09-11 04:52] VITALS: BP 137/75; PULSE 73; RESP 16; TEMP 97.8; O2SAT 95
[2016-09-11 08:44] VITALS: BP 154/79; PULSE 78; RESP 19; TEMP 98; O2SAT 98
--- NOTE | 2016-09-11 09:00 | RADRPT ---
EXAM DATE/TIME: 09/11/2016 07:52 [facility] COMPARISON: CT ABDOMEN & PELVIS W/O CONTRAST, September 08, 2016, 11:55. INDICATIONS : Upper abdominal pain since last Thursday. MEDICAL HISTORY : Hypertension. Carcinoma, colon. SURGICAL HISTORY : Colostomy. ENCOUNTER: Subsequent ACUITY: 4-6 days PAIN SCORE: 3/10 LOCATION: upper quadrant abdomen TECHNIQUE: Multiplanar, multisequence magnetic resonance imaging of the abdomen was performed. High-resolution 3D dataset was utilized to reconstruct maximum-intensity projection (MIP) images. FINDINGS: INTRAHEPATIC BILE DUCTS: Within normal limits. No significant anatomical variant is present. EXTRAHEPATIC BILE DUCTS: The common bile duct measures 5 mm. No stone or filling defect is identified. GALLBLADDER: No stones, wall thickening, or pericholecystic fluid. LIVER: Normal size and signal intensity. No concerning liver lesion is identified on this non-contrast exam. PANCREAS: Inflammatory changes along the pancreatic head and neck. Peripancreatic fluid collections measure 7.6 x 6.2 cm and 3.3 x 3.6 cm. Scattered ascites in the abdomen. OTHER: The remaining visualized structures demonstrate no acute abnormality on this non-contrast exam. Bibas ilar atelectasis and small pleural effusions. Stomal hernia left lower quadrant. CONCLUSION: 1. Inflammatory changes head and neck of pancreas consistent with pancreatitis. 2. Peripancreatic fluid collections as described above. 3. No intra-or extrahepatic biliary ductal dilatation. Alvin Mccoy MD on September 11, 2016 at 8:48 Board Certified Radiologist. This report was verified electronically.
[2016-09-11] MEDS: THIAMINE INJ 100 MG in SODIUM CHLORIDE 0.9% INJ 100 ML IV SCH (09:29)
--- NOTE | 2016-09-11 10:29 | HHI.GIFU ---
Subjective Remarks Patient resting in bed. States his abdominal pain is slightly better today. He wants to go home. (HernándezTrista Leatha IRINEO) Objective Vitals I&O Vital Signs Date Time Temp Pulse Resp B/P Pulse Ox O2 Delivery O2 Flow Rate FiO2 09/11/16 08:44 98.0 78 19 154/79 98 09/11/16 04:52 97.8 73 16 137/75 95 09/11/16 00:20 98.7 76 16 136/67 95 09/10/16 20:48 Room Air 09/10/16 20:12 98.6 74 16 132/73 95 09/10/16 18:51 20 09/10/16 16:00 98.9 78 18 133/71 95 09/10/16 12:00 97.1 79 20 135/74 96 I/O 09/10/16 09/10/16 09/10/16 09/11/16 09/11/16 09/11/16 07:00 15:00 23:00 07:00 15:00 23:00 Intake Total 960 ml 0 ml 1144 ml Balance 960 ml 0 ml 1144 ml Intake Oral 0 ml 0 ml IV Total 960 ml 1144 ml # Voids 3 2 2 2 # Bowel Movements 0 0 0 Laboratory Laboratory Tests Test 09/11/16 07:20 Lipase 1220 Imaging Last Impressions Cholangiopancreatography MRI 09/11/16 0000 Signed Impressions: Service Date/Time: September 07:52 - CONCLUSION: 1. Inflammatory changes head and neck of pancreas consistent with pancreatitis. 2. Peripancreatic fluid collections as described above. 3. No intra-or extrahepatic biliary ductal dilatation. Alvin Mccoy MD Abdomen/Pelvis CT 09/08/16 1046 Signed Impressions: Service Date/Time: Thursday, September 08, 2016 11:55 - CONCLUSION: 1. Extensive inflammatory changes consistent with pancreatitis. There is some adjacent fluid present. Correlation with amylase/lipase levels are recommended. 2. Stomal hernia and left colostomy. No bowel obstruction. 3. Cecum is mildly prominent 4. Right pleural effusion and right basilar density likely atelectasis. Alvin Mccoy MD Physical Exam HEENT: Normocephalic; atraumatic; no jaundice. Throat is clear. CHEST: CTA CARDIAC: Regular rate and rhythm ABDOMEN: Soft, nondistended, mild epigastric tenderness; no hepatosplenomegaly ; left sided colostomy. large stomal hernia EXTREMITIES: No clubbing, cyanosis, or edema. SKIN: Normal; no rash; no jaundice. SALES SUPPORT SPECIALIST: No focal deficits; alert and oriented times three. (Trista Hernández [facility]) Assessment and Plan Plan ASSESSMENT: - Acute pancreatitis/first episode, likely secondary to ETOH. Denies any prior hx of pancreatitis or gb issues. Triglycerides normal. Drinks 5-6 drinks per day (which he reports he has really cut back and that he used to drink more). Denies new medications, but does report that his symptoms began shortly after taking Novocaine for dental work. He is not currently taking NSAIDs but was taking Ebony ASA prior to his dental work. Abdomen/Pelvis CT (09/08/16)----> 1. Extensive inflammatory changes consistent with pancreatitis. There is some adjacent fluid present. Correlation with amylase/lipase levels are recommended. 2. Stomal hernia and left colostomy. No bowel obstruction. 3. Cecum is mildly prominent 4. Right pleural effusion and right basilar density likely atelectasis. MRCP (09/11/16)-----> 1. Inflammatory changes head and neck of pancreas consistent with pancreatitis. 2. Peripancreatic fluid collections as described above. 3. No intra-or extrahepatic biliary ductal dilatation. NPO. Lipase down from 3140---> 1220. Clinically, abdominal pain is slightly improved today. Will start on clears and see how he does. - GERD. PPI - Prominent cecum on CT scan in patient with hx of colon cancer in 1999. S/P chemo/radiation/partial colectomy at that time. Has not had colonoscopy in many years. - Leukocytosis. improving. WBC trending down 15.6 on 09/10. - Anemia. HH 10.6/32.3. - Hyponatremia, Hypokalemia. replaced - Mild elevation alkaline phosphatase. MRCP okay. PLAN: - Clear liquids - Cont. IVF - Cont. PPI - Await IgG 4 - Lipase in am - Will need egd/colonoscopy, pt would prefer these to be done later as outpatient - Further recommendations to follow based on results of above - Pt seen and examined by Dr. Sykes and myself and this note is written on his behalf (Trista Hernández) Physician Comments Patient seen and examined Agree with above Continue with current supportive care Monitor labs (Khang Sykes MD) Trista Hernández Sep 11, 2016 10:29 Khang Sykes MD Sep 11, 2016 19:41
[2016-09-11 11:44] VITALS: BP 148/79; PULSE 75; RESP 18; TEMP 97.6; O2SAT 100
--- NOTE | 2016-09-11 12:16 | HHI.PR ---
Subjective Remarks looks better today. abdominal pain is improving. no nausea or vomiting. no fever. Objective Vitals Vital Signs Date Time Temp Pulse Resp B/P Pulse Ox O2 Delivery O2 Flow Rate FiO2 09/11/16 11:44 97.6 75 18 148/79 100 09/11/16 08:44 98.0 78 19 154/79 98 09/11/16 04:52 97.8 73 16 137/75 95 09/11/16 00:20 98.7 76 16 136/67 95 09/10/16 20:48 Room Air 09/10/16 20:12 98.6 74 16 132/73 95 09/10/16 18:51 20 09/10/16 16:00 98.9 78 18 133/71 95 I/O 09/10/16 09/10/16 09/10/16 09/11/16 09/11/16 09/11/16 07:00 15:00 23:00 07:00 15:00 23:00 Intake Total 960 ml 0 ml 1144 ml Balance 960 ml 0 ml 1144 ml Intake Oral 0 ml 0 ml IV Total 960 ml 1144 ml # Voids 3 2 2 2 # Bowel Movements 0 0 0 Result Diagram: 09/10/16 0630 09/09/16 0920 Imaging Last Impressions Cholangiopancreatography MRI 09/11/16 0000 Signed Impressions: Service Date/Time: September 07:52 - CONCLUSION: 1. Inflammatory changes head and neck of pancreas consistent with pancreatitis. 2. Peripancreatic fluid collections as described above. 3. No intra-or extrahepatic biliary ductal dilatation. Alvin Mccoy MD Abdomen/Pelvis CT 09/08/16 1046 Signed Impressions: Service Date/Time: Thursday, September 08, 2016 11:55 - CONCLUSION: 1. Extensive inflammatory changes consistent with pancreatitis. There is some adjacent fluid present. Correlation with amylase/lipase levels are recommended. 2. Stomal hernia and left colostomy. No bowel obstruction. 3. Cecum is mildly prominent 4. Right pleural effusion and right basilar density likely atelectasis. Alvin Mccoy MD Objective Remarks GENERAL: This is a well-nourished, well-developed patient, in no apparent distress. CARDIOVASCULAR: Regular rate and regular rhythm without murmurs, gallops, or rubs. RESPIRATORY: Clear to auscultation. Breath sounds equal bilaterally. No wheezes , rales, or rhonchi. GASTROINTESTINAL: Abdomen soft, generalized tenderness, nondistended. Normal, active bowel sounds MUSCULOSKELETAL: Extremities without clubbing, cyanosis, or edema. NEURO: Alert & Oriented x4 to person, place, time, situation. Moves all ext x4 Procedures none Medications and IVs Current Medications Sodium Chloride (NS 1000 ml Inj) 1,000 ml @ 1,000 mls/hr Q1H IV Last administered on 09/08/16 12:12; Start 09/08/16 at 10:46; Stop 09/08/16 at 11:45 ; Status DC IV Flush (NS Flush) 2 ml UNSCH PRN IVF FLUSH AFTER USING IV ACCESS; Start 09/08 at 11:00 Morphine Sulfate (Morphine Inj) 4 mg ONCE ONCE IV PUSH Last administered on 12:27; Start 09/08/16 at 12:30; Stop 09/08/16 at 12:31; Status DC Ondansetron HCl 4 mg 4 mg ONCE ONCE IV PUSH Last administered on 09/08/16 12: 27; Start 09/08/16 at 12:30; Stop 09/08/16 at 12:31; Status DC Sodium Chloride 1,000 ml @ 999 mls/hr BOLUS ONCE IV Last administered on 09/08 13:41; Start 09/08/16 at 12:30; Stop 09/08/16 at 13:30; Status DC Potassium Chloride/Sodium Chloride (KCl Inj/NS 1000 ml Inj) 1,010 ml @ 125 mls/ hr Q8H5M IV ; Start 09/08/16 at 12:45; Status UNV Ondansetron HCl (Zofran Inj) 4 mg Q8HR PRN IV PUSH NAUSEA; Start 09/08/16 at 12 :45; Stop 09/08/16 at 12:48; Status DC Acetaminophen (Tylenol) 650 mg Q4H PRN PO FEVER Last administered on 09/09/16 06:01; Start 09/08/16 at 12:45 Ondansetron HCl 4 mg 4 mg Q8H PRN IV PUSH NAUSEA; Start 09/08/16 at 12:48 Potassium Chloride/Sodium Chloride (NS + KCl 20 Meq Inj) 1,000 ml @ 125 mls/hr Q8H IV Last administered on 09/11/16 04:46; Start 09/08/16 at 13:00 Hydromorphone HCl (Dilaudid Pf Inj) 0.5 mg Q4H PRN IV PUSH PAIN < 5; Start at 13:00 Hydromorphone HCl (Dilaudid Pf Inj) 1 mg Q4H PRN IV PUSH PAIN > 5 Last administered on 09/11/16 09:33; Start 09/08/16 at 13:00 Lorazepam 1 mg 1 mg Q4H PRN IV PUSH ANXIETY; Start 09/08/16 at 14:00 Thiamine HCl/ Sodium Chloride (Thiamine Inj/NS Inj) 101 ml @ 101 mls/hr DAILY IV Last administered on 09/11/16 09:29; Start 09/08/16 at 15:00 Enalaprilat (Vasotec Inj) 1.25 mg Q8H PRN IV PUSH SBP> OR = 180, DBP> OR = 100 ; Start 09/08/16 at 14:00 Pantoprazole Sodium (Protonix Inj) 40 mg Q24H IV PUSH Last administered on 16:17; Start 09/08/16 at 16:00 Influenza Virus Vaccine (Flu (Quadrivalent) Vaccine Inj) 0.5 ml ONCE ONCE IM Last administered on 09/09/16 08:43; Start 09/09/16 at 10:00; Stop 09/09/16 at 10:01; Status DC Pneumococcal Polyvalent Vaccine (Pneumovax-23 Inj) 25 mcg ONCE ONCE IM Last administered on 09/09/16 08:48; Start 09/09/16 at 10:00; Stop 09/09/16 at 10:01 ; Status DC A/P Assessment and Plan A/P - acute pancreatitis due to alcohol- improving on liquid diet- continue IV fluid and pain control- antiemetics as needed- repeat lipase in am will likely advance the diet as he tolerates. GI following. -leukocytosis/ fever due to pancreatitis- will monitor. -hypokalemia/ hyponatremia; replaced- will monitor -alcohol abuse; continue thiamine- ativan as needed- counselled on drinking cessation. -hypertension; - vasotec as needed for now -history of colon cancer- s/p colostomy -DVT prophylaxis with SCD's Isabel Puentes MD Sep 11, 2016 12:13
[2016-09-11] MEDS: PANTOPRAZOLE SODIUM 40 MG VIAL IV PUSH SCH (15:20)
[2016-09-11 16:00] VITALS: BP 133/74; PULSE 71; RESP 18; TEMP 98.1; O2SAT 99
[2016-09-11 20:00] VITALS: BP 163/89; PULSE 79; RESP 18; TEMP 98.5; O2SAT 99
[2016-09-12 04:00] VITALS: BP 134/72; PULSE 71; RESP 18; TEMP 98.4; O2SAT 95
[2016-09-12] MEDS: NS + KCL 20 MEQ INJ 1,000 ML IV SCH ×3 (04:48→20:01)
[2016-09-12] MEDS: HYDROmorphone HCL PF 1 MG/ML VIAL IV PUSH PRN ×4 (06:45→20:02)
[2016-09-12 08:00] VITALS: BP 135/75; PULSE 70; RESP 18; TEMP 98.6; O2SAT 97
[2016-09-12] MEDS: THIAMINE INJ 100 MG in SODIUM CHLORIDE 0.9% INJ 100 ML IV SCH (08:08)
[2016-09-12 08:20] LABS: AUTOMATED NEUTROPHIL # 9.7 TH/MM3 (1.8-7.7); BASOPHIL % 0.4 % (0.0-2.0); EOSINOPHIL # 0.1 TH/MM3 (0-0.4); EOSINOPHIL % 1.1 % (0.0-4.0); HEMATOCRIT 35.7 % (39.0-51.0); HEMO FLAGS DIFF FINAL; LYMPHOCYTE # 1.2 TH/MM3 (1.0-4.8); MEAN CELL VOLUME 108.4 FL (80.0-100.0); MEAN CORPUSCULAR HEMOGLOBIN 35.9 PG (27.0-34.0); MEAN CORPUSCULAR HGB CONC 33.1 % (32.0-36.0); MONO % 8.3 % (0.0-8.0); NEUT % 80.2 % (16.0-70.0); PLATELET COUNT 425 TH/MM3 (150-450); RED BLOOD COUNT 3.29 MIL/MM3 (4.50-5.90); RED CELL DISTRIBUTION WIDTH 16.3 % (11.6-17.2); WHITE BLOOD COUNT 12.1 TH/MM3 (4.0-11.0)
--- NOTE | 2016-09-12 10:01 | HHI.PR ---
Subjective Remarks walking in the room. abdominal pain is somewhat better. tolerating the liquid diet. no fever. Objective Vitals Vital Signs Date Time Temp Pulse Resp B/P Pulse Ox O2 Delivery O2 Flow Rate FiO2 09/12/16 08:00 98.6 70 18 135/75 97 09/12/16 07:43 Room Air 09/12/16 04:00 98.4 71 18 134/72 95 09/11/16 21:03 Room Air 09/11/16 20:00 98.5 79 18 163/89 99 09/11/16 16:00 98.1 71 18 133/74 99 09/11/16 13:52 Room Air 09/11/16 11:44 97.6 75 18 148/79 100 I/O 09/11/16 09/11/16 09/11/16 09/12/16 09/12/16 09/12/16 07:00 15:00 23:00 07:00 15:00 23:00 Intake Total 1144 ml 1482 ml 1242 ml 984 ml Balance 1144 ml 1482 ml 1242 ml 984 ml Intake Oral 0 ml 750 ml 240 ml IV Total 1144 ml 732 ml 1002 ml 984 ml # Voids 2 5 2 # Bowel Movements 0 0 0 Result Diagram: 09/12/16 0748 09/09/16 0920 Imaging Last Impressions Cholangiopancreatography MRI 09/11/16 0000 Signed Impressions: Service Date/Time: September 07:52 - CONCLUSION: 1. Inflammatory changes head and neck of pancreas consistent with pancreatitis. 2. Peripancreatic fluid collections as described above. 3. No intra-or extrahepatic biliary ductal dilatation. Alvin Mccoy MD Abdomen/Pelvis CT 09/08/16 1046 Signed Impressions: Service Date/Time: Thursday, September 08, 2016 11:55 - CONCLUSION: 1. Extensive inflammatory changes consistent with pancreatitis. There is some adjacent fluid present. Correlation with amylase/lipase levels are recommended. 2. Stomal hernia and left colostomy. No bowel obstruction. 3. Cecum is mildly prominent 4. Right pleural effusion and right basilar density likely atelectasis. Alvin Mccoy MD Objective Remarks GENERAL: This is a well-nourished, well-developed patient, in no apparent distress. CARDIOVASCULAR: Regular rate and regular rhythm without murmurs, gallops, or rubs. RESPIRATORY: Clear to auscultation. Breath sounds equal bilaterally. No wheezes , rales, or rhonchi. GASTROINTESTINAL: Abdomen soft, generalized tenderness, nondistended. Normal, active bowel sounds MUSCULOSKELETAL: Extremities without clubbing, cyanosis, or edema. NEURO: Alert & Oriented x4 to person, place, time, situation. Moves all ext x4 Procedures none Medications and IVs Current Medications Sodium Chloride (NS 1000 ml Inj) 1,000 ml @ 1,000 mls/hr Q1H IV Last administered on 09/08/16 12:12; Start 09/08/16 at 10:46; Stop 09/08/16 at 11:45 ; Status DC IV Flush (NS Flush) 2 ml UNSCH PRN IVF FLUSH AFTER USING IV ACCESS; Start 09/08 at 11:00 Morphine Sulfate (Morphine Inj) 4 mg ONCE ONCE IV PUSH Last administered on 12:27; Start 09/08/16 at 12:30; Stop 09/08/16 at 12:31; Status DC Ondansetron HCl 4 mg 4 mg ONCE ONCE IV PUSH Last administered on 09/08/16 12: 27; Start 09/08/16 at 12:30; Stop 09/08/16 at 12:31; Status DC Sodium Chloride 1,000 ml @ 999 mls/hr BOLUS ONCE IV Last administered on 09/08 13:41; Start 09/08/16 at 12:30; Stop 09/08/16 at 13:30; Status DC Potassium Chloride/Sodium Chloride (KCl Inj/NS 1000 ml Inj) 1,010 ml @ 125 mls/ hr Q8H5M IV ; Start 09/08/16 at 12:45; Status UNV Ondansetron HCl (Zofran Inj) 4 mg Q8HR PRN IV PUSH NAUSEA; Start 09/08/16 at 12 :45; Stop 09/08/16 at 12:48; Status DC Acetaminophen (Tylenol) 650 mg Q4H PRN PO FEVER Last administered on 09/09/16 06:01; Start 09/08/16 at 12:45 Ondansetron HCl 4 mg 4 mg Q8H PRN IV PUSH NAUSEA; Start 09/08/16 at 12:48 Potassium Chloride/Sodium Chloride (NS + KCl 20 Meq Inj) 1,000 ml @ 125 mls/hr Q8H IV Last administered on 09/12/16 04:48; Start 09/08/16 at 13:00 Hydromorphone HCl (Dilaudid Pf Inj) 0.5 mg Q4H PRN IV PUSH PAIN < 5; Start at 13:00 Hydromorphone HCl (Dilaudid Pf Inj) 1 mg Q4H PRN IV PUSH PAIN > 5 Last administered on 09/12/16 06:45; Start 09/08/16 at 13:00 Lorazepam 1 mg 1 mg Q4H PRN IV PUSH ANXIETY; Start 09/08/16 at 14:00 Thiamine HCl/ Sodium Chloride (Thiamine Inj/NS Inj) 101 ml @ 101 mls/hr DAILY IV Last administered on 09/12/16 08:08; Start 09/08/16 at 15:00 Enalaprilat (Vasotec Inj) 1.25 mg Q8H PRN IV PUSH SBP> OR = 180, DBP> OR = 100 ; Start 09/08/16 at 14:00 Pantoprazole Sodium (Protonix Inj) 40 mg Q24H IV PUSH Last administered on 15:20; Start 09/08/16 at 16:00 Influenza Virus Vaccine (Flu (Quadrivalent) Vaccine Inj) 0.5 ml ONCE ONCE IM Last administered on 09/09/16 08:43; Start 09/09/16 at 10:00; Stop 09/09/16 at 10:01; Status DC Pneumococcal Polyvalent Vaccine (Pneumovax-23 Inj) 25 mcg ONCE ONCE IM Last administered on 09/09/16 08:48; Start 09/09/16 at 10:00; Stop 09/09/16 at 10:01 ; Status DC A/P Assessment and Plan A/P - acute pancreatitis due to alcohol- improving clinically MRCP with pancreatitis and peripancreatic fluid collection on liquid diet- continue IV fluid and pain control- antiemetics as needed- repeat lipase in am GI following. -leukocytosis/ fever due to pancreatitis-improving- will monitor. -hypokalemia/ hyponatremia; replaced- will monitor -alcohol abuse; continue thiamine- ativan as needed- counselled on drinking cessation. -hypertension; - vasotec as needed for now -history of colon cancer- s/p colostomy -DVT prophylaxis with SCD's Isabel Puentes MD Sep 12, 2016 10:01
[2016-09-12 12:00] VITALS: BP 143/81; PULSE 72; RESP 18; TEMP 98; O2SAT 95
[2016-09-12] MEDS: PANTOPRAZOLE SODIUM 40 MG VIAL IV PUSH SCH (15:10)
[2016-09-12 16:00] VITALS: BP 159/90; PULSE 80; RESP 18; TEMP 98; O2SAT 97
[2016-09-12 20:00] VITALS: BP 164/87; PULSE 75; RESP 20; TEMP 98.6; O2SAT 97
[2016-09-12] MEDS: SODIUM CHLORIDE 0.9% FLUSH 5 ML FLUSH IVF PRN (20:03)
[2016-09-13] VITALS: BP 256/78; PULSE 77; RESP 20; TEMP 98.4; O2SAT 98
--- NOTE | 2016-09-13 00:08 | HHI.GIFU ---
Subjective Remarks Patient comfortable in bed denies any pain denies any nausea or vomiting tolerating clear liquids Objective Vitals I&O Vital Signs Date Time Temp Pulse Resp B/P Pulse Ox O2 Delivery O2 Flow Rate FiO2 09/12/16 20:10 Room Air 09/12/16 20:00 98.6 75 20 164/87 97 09/12/16 16:00 98.0 80 18 159/90 97 09/12/16 12:00 98.0 72 18 143/81 95 09/12/16 08:00 98.6 70 18 135/75 97 09/12/16 07:43 Room Air 09/12/16 04:00 98.4 71 18 134/72 95 I/O 09/12/16 09/12/16 09/12/16 09/13/16 09/13/16 09/13/16 07:00 15:00 23:00 07:00 15:00 23:00 Intake Total 984 ml 1797 ml 480 ml Balance 984 ml 1797 ml 480 ml Intake Oral 960 ml 480 ml IV Total 984 ml 837 ml # Voids 3 # Bowel Movements 1 Laboratory Laboratory Tests Test 09/12/16 07:48 White Blood Count 12.1 Red Blood Count 3.29 Hemoglobin 11.8 Hematocrit 35.7 Mean Corpuscular Volume 108.4 Mean Corpuscular Hemoglobin 35.9 Mean Corpuscular Hemoglobin 33.1 Concent Red Cell Distribution Width 16.3 Platelet Count 425 Mean Platelet Volume 8.0 Neutrophils (%) (Auto) 80.2 Lymphocytes (%) (Auto) 10.0 Monocytes (%) (Auto) 8.3 Eosinophils (%) (Auto) 1.1 Basophils (%) (Auto) 0.4 Neutrophils # (Auto) 9.7 Lymphocytes # (Auto) 1.2 Monocytes # (Auto) 1.0 Eosinophils # (Auto) 0.1 Basophils # (Auto) 0.0 CBC Comment DIFF FINAL Differential Comment Lipase 7269 Physical Exam HEENT: Normocephalic; atraumatic; no jaundice. Throat is clear. CHEST: CTA CARDIAC: Regular rate and rhythm ABDOMEN: Soft, nondistended, mild epigastric tenderness; no hepatosplenomegaly ; left sided colostomy. large stomal hernia EXTREMITIES: No clubbing, cyanosis, or edema. SKIN: Normal; no rash; no jaundice. KEY ACCOUNT DIRECTOR: No focal deficits; alert and oriented times three. Assessment and Plan Plan ASSESSMENT: - Acute pancreatitis/first episode, likely secondary to ETOH. Denies any prior hx of pancreatitis or gb issues. Triglycerides normal. Drinks 5-6 drinks per day (which he reports he has really cut back and that he used to drink more). Denies new medications, but does report that his symptoms began shortly after taking Novocaine for dental work. He is not currently taking NSAIDs but was taking Ebony ASA prior to his dental work. Abdomen/Pelvis CT (09/08/16)----> 1. Extensive inflammatory changes consistent with pancreatitis. There is some adjacent fluid present. Correlation with amylase/lipase levels are recommended. 2. Stomal hernia and left colostomy. No bowel obstruction. 3. Cecum is mildly prominent 4. Right pleural effusion and right basilar density likely atelectasis. MRCP (09/11/16)-----> 1. Inflammatory changes head and neck of pancreas consistent with pancreatitis. 2. Peripancreatic fluid collections as described above. 3. No intra-or extrahepatic biliary ductal dilatation. NPO. Lipase down from 3140---> 1220. Clinically, abdominal pain is slightly improved today. Will start on clears and see how he does. - GERD. PPI - Prominent cecum on CT scan in patient with hx of colon cancer in 1999. S/P chemo/radiation/partial colectomy at that time. Has not had colonoscopy in many years. - Leukocytosis. improving. WBC trending down 15.6 on 09/10. - Anemia. HH 10.6/32.3. - Hyponatremia, Hypokalemia. replaced - Mild elevation alkaline phosphatase. MRCP okay. PLAN: - Clear liquids - Cont. IVF - Cont. PPI - Await IgG 4 - Lipase in am - Will need egd/colonoscopy, pt would prefer these to be done later as outpatient - Further recommendations to follow based on results of above -Consider advancing diet in the a.m. if his lipase continues to go down Khang Sykes MD Sep 13, 2016 00:08
[2016-09-13] MEDS: HYDROmorphone HCL PF 1 MG/ML VIAL IV PUSH PRN ×6 (00:26→22:07)
[2016-09-13] MEDS: SODIUM CHLORIDE 0.9% FLUSH 5 ML FLUSH IVF PRN ×2 (00:29→04:41)
[2016-09-13 04:00] VITALS: BP 158/86; PULSE 71; RESP 20; TEMP 98.1; O2SAT 95
[2016-09-13] MEDS: NS + KCL 20 MEQ INJ 1,000 ML IV SCH ×2 (04:40→15:27)
[2016-09-13 08:00] VITALS: BP 134/74; PULSE 70; RESP 18; TEMP 99.1; O2SAT 97
[2016-09-13 08:41] LABS: BICARBONATE 23.4 MEQ/L (21.0-32.0); POTASSIUM 3.6 MEQ/L (3.5-5.1)
[2016-09-13] MEDS: THIAMINE INJ 100 MG in SODIUM CHLORIDE 0.9% INJ 100 ML IV SCH (09:24)
--- NOTE | 2016-09-13 10:03 | HHI.PR ---
Subjective Remarks overall doing better. abdominal pain has subsided. tolerated the clear liquid diet. no fever. d/w the RN. Objective Vitals Vital Signs Date Time Temp Pulse Resp B/P Pulse Ox O2 Delivery O2 Flow Rate FiO2 09/13/16 04:00 98.1 71 20 158/86 95 09/13/16 00:00 98.4 77 20 256/78 98 09/12/16 20:10 Room Air 09/12/16 20:00 98.6 75 20 164/87 97 09/12/16 16:00 98.0 80 18 159/90 97 09/12/16 12:00 98.0 72 18 143/81 95 I/O 09/12/16 09/12/16 09/12/16 09/13/16 09/13/16 09/13/16 07:00 15:00 23:00 07:00 15:00 23:00 Intake Total 984 ml 1797 ml 480 ml 1801 ml Balance 984 ml 1797 ml 480 ml 1801 ml Intake Oral 960 ml 480 ml IV Total 984 ml 837 ml 1801 ml # Voids 3 # Bowel Movements 1 Result Diagram: 09/12/16 0748 09/13/16 0748 Imaging Last Impressions Cholangiopancreatography MRI 09/11/16 0000 Signed Impressions: Service Date/Time: September 07:52 - CONCLUSION: 1. Inflammatory changes head and neck of pancreas consistent with pancreatitis. 2. Peripancreatic fluid collections as described above. 3. No intra-or extrahepatic biliary ductal dilatation. Alvin Mccoy MD Abdomen/Pelvis CT 09/08/16 1046 Signed Impressions: Service Date/Time: Thursday, September 08, 2016 11:55 - CONCLUSION: 1. Extensive inflammatory changes consistent with pancreatitis. There is some adjacent fluid present. Correlation with amylase/lipase levels are recommended. 2. Stomal hernia and left colostomy. No bowel obstruction. 3. Cecum is mildly prominent 4. Right pleural effusion and right basilar density likely atelectasis. Alvin Mccoy MD Objective Remarks GENERAL: This is a well-nourished, well-developed patient, in no apparent distress. CARDIOVASCULAR: Regular rate and regular rhythm without murmurs, gallops, or rubs. RESPIRATORY: Clear to auscultation. Breath sounds equal bilaterally. No wheezes , rales, or rhonchi. GASTROINTESTINAL: Abdomen soft, generalized tenderness, nondistended. Normal, active bowel sounds MUSCULOSKELETAL: Extremities without clubbing, cyanosis, or edema. NEURO: Alert & Oriented x4 to person, place, time, situation. Moves all ext x4 Procedures none Medications and IVs Current Medications Sodium Chloride (NS 1000 ml Inj) 1,000 ml @ 1,000 mls/hr Q1H IV Last administered on 09/08/16 12:12; Start 09/08/16 at 10:46; Stop 09/08/16 at 11:45 ; Status DC IV Flush (NS Flush) 2 ml UNSCH PRN IVF FLUSH AFTER USING IV ACCESS Last administered on 09/13/16 04:41; Start 09/08/16 at 11:00 Morphine Sulfate (Morphine Inj) 4 mg ONCE ONCE IV PUSH Last administered on 12:27; Start 09/08/16 at 12:30; Stop 09/08/16 at 12:31; Status DC Ondansetron HCl 4 mg 4 mg ONCE ONCE IV PUSH Last administered on 09/08/16 12: 27; Start 09/08/16 at 12:30; Stop 09/08/16 at 12:31; Status DC Sodium Chloride 1,000 ml @ 999 mls/hr BOLUS ONCE IV Last administered on 09/08 13:41; Start 09/08/16 at 12:30; Stop 09/08/16 at 13:30; Status DC Potassium Chloride/Sodium Chloride (KCl Inj/NS 1000 ml Inj) 1,010 ml @ 125 mls/ hr Q8H5M IV ; Start 09/08/16 at 12:45; Status UNV Ondansetron HCl (Zofran Inj) 4 mg Q8HR PRN IV PUSH NAUSEA; Start 09/08/16 at 12 :45; Stop 09/08/16 at 12:48; Status DC Acetaminophen (Tylenol) 650 mg Q4H PRN PO FEVER Last administered on 09/09/16 06:01; Start 09/08/16 at 12:45 Ondansetron HCl 4 mg 4 mg Q8H PRN IV PUSH NAUSEA; Start 09/08/16 at 12:48 Potassium Chloride/Sodium Chloride (NS + KCl 20 Meq Inj) 1,000 ml @ 125 mls/hr Q8H IV Last administered on 09/13/16 04:40; Start 09/08/16 at 13:00 Hydromorphone HCl (Dilaudid Pf Inj) 0.5 mg Q4H PRN IV PUSH PAIN < 5; Start at 13:00 Hydromorphone HCl (Dilaudid Pf Inj) 1 mg Q4H PRN IV PUSH PAIN > 5 Last administered on 09/13/16 09:24; Start 09/08/16 at 13:00 Lorazepam 1 mg 1 mg Q4H PRN IV PUSH ANXIETY; Start 09/08/16 at 14:00 Thiamine HCl/ Sodium Chloride (Thiamine Inj/NS Inj) 101 ml @ 101 mls/hr DAILY IV Last administered on 09/13/16 09:24; Start 09/08/16 at 15:00 Enalaprilat (Vasotec Inj) 1.25 mg Q8H PRN IV PUSH SBP> OR = 180, DBP> OR = 100 ; Start 09/08/16 at 14:00 Pantoprazole Sodium (Protonix Inj) 40 mg Q24H IV PUSH Last administered on 15:10; Start 09/08/16 at 16:00 Influenza Virus Vaccine (Flu (Quadrivalent) Vaccine Inj) 0.5 ml ONCE ONCE IM Last administered on 09/09/16 08:43; Start 09/09/16 at 10:00; Stop 09/09/16 at 10:01; Status DC Pneumococcal Polyvalent Vaccine (Pneumovax-23 Inj) 25 mcg ONCE ONCE IM Last administered on 09/09/16 08:48; Start 09/09/16 at 10:00; Stop 09/09/16 at 10:01 ; Status DC A/P Assessment and Plan A/P - acute pancreatitis due to alcohol- improving clinically MRCP with pancreatitis and peripancreatic fluid collection advance the diet to full liquid- continue IV fluid and pain control- antiemetics as needed- repeat lipase in am GI following. -leukocytosis/ fever due to pancreatitis-improving- will monitor. -hypokalemia/ hyponatremia; replaced- will monitor -alcohol abuse; continue thiamine- ativan as needed- counselled on drinking cessation. -hypertension; - vasotec as needed for now -history of colon cancer- s/p colostomy -DVT prophylaxis with SCD's Discharge Planning dc home in am if stable. Isabel Puentes MD Sep 13, 2016 10:02
[2016-09-13] MEDS ORDERED: MULT1TAB84 PO (10:04)
[2016-09-13] MEDS ORDERED: THIA100T PO (10:04)
[2016-09-13] MEDS ORDERED: PROT40TA PO (10:04)
--- NOTE | 2016-09-13 10:05 | HHI.DCPOC ---
Discharge Care Plan Diagnosis: (1) Pancreatitis, alcoholic, acute Your Health Problems Are: Inflammation Swelling Goals to Promote Your Health * To prevent worsening of your condition and complications * To maintain your health at the optimal level Directions to Meet Your Goals Take your medications as prescribed Follow your dietary instruction Follow activity as directed Keep your appointments as scheduled Take your immunizations and boosters as scheduled If your symptoms worsen call your PCP, if no PCP go to Urgent Care Center or Emergency Room Smoking is Dangerous to Your Health. Avoid second hand smoke Call the 24-hour hour crisis hotline for domestic abuse at Isabel Puentes MD Sep 13, 2016 10:05
[2016-09-13 12:00] VITALS: BP 149/86; PULSE 69; RESP 18; TEMP 98; O2SAT 98
[2016-09-13] MEDS: PANTOPRAZOLE SODIUM 40 MG VIAL IV PUSH SCH (15:38)
[2016-09-13 16:00] VITALS: BP 148/76; PULSE 73; RESP 18; TEMP 98; O2SAT 97
--- NOTE | 2016-09-13 18:04 | HHI.GIFU ---
Subjective Remarks Resting in bed. Feeling much better. Started on full liquids today. Doing well with this. States he does realize that he needs a colonoscopy, but is wanting this done as outpatient once his pancreatitis completely resolves. States he will not drink ETOH again. (Trista Hernández) Objective Vitals I&O Vital Signs Date Time Temp Pulse Resp B/P Pulse Ox O2 Delivery O2 Flow Rate FiO2 09/13/16 16:00 98.0 73 18 148/76 97 09/13/16 15:26 18 09/13/16 12:00 98.0 69 18 149/86 98 09/13/16 08:00 99.1 70 18 134/74 97 09/13/16 07:15 97 Room Air 09/13/16 04:00 98.1 71 20 158/86 95 09/13/16 00:00 98.4 77 20 256/78 98 09/12/16 20:10 Room Air 09/12/16 20:00 98.6 75 20 164/87 97 I/O 09/12/16 09/12/16 09/12/16 09/13/16 09/13/16 09/13/16 07:00 15:00 23:00 07:00 15:00 23:00 Intake Total 984 ml 1797 ml 480 ml 1801 ml 960 ml 1227 ml Balance 984 ml 1797 ml 480 ml 1801 ml 960 ml 1227 ml Intake Oral 960 ml 480 ml 960 ml IV Total 984 ml 837 ml 1801 ml 1227 ml # Voids 3 2 # Bowel Movements 1 1 Laboratory Laboratory Tests Test 09/13/16 07:48 Sodium Level 142 Potassium Level 3.6 Chloride Level 109 Carbon Dioxide Level 23.4 Anion Gap 10 Blood Urea Nitrogen 1 Creatinine 0.33 Estimat Glomerular Filtration 272 Rate Random Glucose 125 Calcium Level 8.0 Lipase 700 Imaging Last Impressions Cholangiopancreatography MRI 09/11/16 0000 Signed Impressions: Service Date/Time: September 07:52 - CONCLUSION: 1. Inflammatory changes head and neck of pancreas consistent with pancreatitis. 2. Peripancreatic fluid collections as described above. 3. No intra-or extrahepatic biliary ductal dilatation. Alvin Mccoy MD Abdomen/Pelvis CT 09/08/16 1046 Signed Impressions: Service Date/Time: Thursday, September 08, 2016 11:55 - CONCLUSION: 1. Extensive inflammatory changes consistent with pancreatitis. There is some adjacent fluid present. Correlation with amylase/lipase levels are recommended. 2. Stomal hernia and left colostomy. No bowel obstruction. 3. Cecum is mildly prominent 4. Right pleural effusion and right basilar density likely atelectasis. Alvin Mccoy MD Physical Exam HEENT: Normocephalic; atraumatic; no jaundice. Throat is clear. CHEST: CTA CARDIAC: Regular rate and rhythm ABDOMEN: Soft, nondistended, mild epigastric tenderness; no hepatosplenomegaly ; left sided colostomy. large stomal hernia EXTREMITIES: No clubbing, cyanosis, or edema. SKIN: Normal; no rash; no jaundice. COGNOS DEVELOPER: No focal deficits; alert and oriented times three. (Trista Hernández CYCLE TOURING GUIDE) Assessment and Plan Plan ASSESSMENT: - Acute pancreatitis/first episode, likely secondary to ETOH. Denies any prior hx of pancreatitis or gb issues. Triglycerides normal. Drinks 5-6 drinks per day (which he reports he has really cut back and that he used to drink more). Denies new medications, but does report that his symptoms began shortly after taking Novocaine for dental work. He is not currently taking NSAIDs but was taking Ebony ASA prior to his dental work. Abdomen/Pelvis CT (09/08/16)----> 1. Extensive inflammatory changes consistent with pancreatitis. There is some adjacent fluid present. Correlation with amylase/lipase levels are recommended. 2. Stomal hernia and left colostomy. No bowel obstruction. 3. Cecum is mildly prominent 4. Right pleural effusion and right basilar density likely atelectasis. MRCP (09/11/16)-----> 1. Inflammatory changes head and neck of pancreas consistent with pancreatitis. 2. Peripancreatic fluid collections as described above. 3. No intra-or extrahepatic biliary ductal dilatation. Lipase down from 7269---> 700 today. Started on full liquids. Doing well with this. WBC improving. Clinically, much improved. D/W patient importance of complete ETOH cessation, low fat diet at discharge. Verbalizes understanding. - GERD. PPI - Prominent cecum on CT scan in patient with hx of colon cancer in 1999. S/P chemo/radiation/partial colectomy at that time. Has not had colonoscopy in many years. He would like to proceed with this as outpatient once pancreatitis completely resolves. - Leukocytosis. improving. WBC trending down, 12.1. - Anemia. HH 11.8/35.7. - Hyponatremia, Hypokalemia. replaced - Mild elevation alkaline phosphatase. MRCP okay. PLAN: - Full liquids - Cont. PPI - Await IgG 4 - Monitor labs - Will need egd/colonoscopy, pt would like to have done as outpatient once pancreatitis completely resolves - Further recommendations to follow based on results of above - Pt seen and examined by Dr. Sykes and myself and this note is written on his behalf (Trista Hernández) Physician Comments Patient seen and examined Agree with above Continue with current supportive care Monitor labs Patient follow up with GI post discharge Not much to add from a GI perspective at this point We will sign off (Khang Sykes MD) Trista Hernández Sep 13, 2016 18:04 Khang Sykes MD Sep 13, 2016 20:56
[2016-09-13 20:00] VITALS: BP 162/91; PULSE 96; RESP 20; TEMP 98.2; O2SAT 97
[2016-09-14] VITALS: BP 152/90; PULSE 96; RESP 20; TEMP 98; O2SAT 97
[2016-09-14] MEDS: HYDROmorphone HCL PF 1 MG/ML VIAL IV PUSH PRN ×3 (02:23→11:00)
[2016-09-14] MEDS: NS + KCL 20 MEQ INJ 1,000 ML IV SCH (02:24)
[2016-09-14 04:00] VITALS: BP 143/88; PULSE 66; RESP 20; TEMP 98.4; O2SAT 97
[2016-09-14 08:00] VITALS: BP 127/71; PULSE 70; RESP 18; TEMP 98.5; O2SAT 96
[2016-09-14] MEDS ORDERED: THIAMINE HCL 100 MG TAB PO SCH (09:00)
--- NOTE | 2016-09-14 09:34 | HHI.PR ---
Subjective Remarks resting comfortably with no distress. abdominal pain is better. tolerating the liquid diet. no other complaints. Objective Vitals Vital Signs Date Time Temp Pulse Resp B/P Pulse Ox O2 Delivery O2 Flow Rate FiO2 09/14/16 04:00 98.4 66 20 143/88 97 09/14/16 00:00 98.0 96 20 152/90 97 09/13/16 20:00 98.2 96 20 162/91 97 09/13/16 20:00 Room Air 09/13/16 16:00 98.0 73 18 148/76 97 09/13/16 15:26 18 09/13/16 12:00 98.0 69 18 149/86 98 I/O 09/13/16 09/13/16 09/13/16 09/14/16 09/14/16 09/14/16 07:00 15:00 23:00 07:00 15:00 23:00 Intake Total 1801 ml 960 ml 1967 ml 606 ml Balance 1801 ml 960 ml 1967 ml 606 ml Intake Oral 960 ml 240 ml IV Total 1801 ml 1727 ml 606 ml # Voids 2 2 1 # Bowel Movements 1 0 Result Diagram: 09/12/16 0748 09/13/16 0748 Imaging Last Impressions Cholangiopancreatography MRI 09/11/16 0000 Signed Impressions: Service Date/Time: September 07:52 - CONCLUSION: 1. Inflammatory changes head and neck of pancreas consistent with pancreatitis. 2. Peripancreatic fluid collections as described above. 3. No intra-or extrahepatic biliary ductal dilatation. Alvin Mccoy MD Abdomen/Pelvis CT 09/08/16 1046 Signed Impressions: Service Date/Time: Thursday, September 08, 2016 11:55 - CONCLUSION: 1. Extensive inflammatory changes consistent with pancreatitis. There is some adjacent fluid present. Correlation with amylase/lipase levels are recommended. 2. Stomal hernia and left colostomy. No bowel obstruction. 3. Cecum is mildly prominent 4. Right pleural effusion and right basilar density likely atelectasis. Alvin Mccoy MD Objective Remarks GENERAL: This is a well-nourished, well-developed patient, in no apparent distress. CARDIOVASCULAR: Regular rate and regular rhythm without murmurs, gallops, or rubs. RESPIRATORY: Clear to auscultation. Breath sounds equal bilaterally. No wheezes , rales, or rhonchi. GASTROINTESTINAL: Abdomen soft, minimal to mild tenderness, nondistended. Normal, active bowel sounds MUSCULOSKELETAL: Extremities without clubbing, cyanosis, or edema. NEURO: Alert & Oriented x4 to person, place, time, situation. Moves all ext x4 Procedures none Medications and IVs Current Medications Sodium Chloride (NS 1000 ml Inj) 1,000 ml @ 1,000 mls/hr Q1H IV Last administered on 09/08/16 12:12; Start 09/08/16 at 10:46; Stop 09/08/16 at 11:45 ; Status DC IV Flush (NS Flush) 2 ml UNSCH PRN IVF FLUSH AFTER USING IV ACCESS Last administered on 09/13/16 04:41; Start 09/08/16 at 11:00 Morphine Sulfate (Morphine Inj) 4 mg ONCE ONCE IV PUSH Last administered on 12:27; Start 09/08/16 at 12:30; Stop 09/08/16 at 12:31; Status DC Ondansetron HCl 4 mg 4 mg ONCE ONCE IV PUSH Last administered on 09/08/16 12: 27; Start 09/08/16 at 12:30; Stop 09/08/16 at 12:31; Status DC Sodium Chloride 1,000 ml @ 999 mls/hr BOLUS ONCE IV Last administered on 09/08 13:41; Start 09/08/16 at 12:30; Stop 09/08/16 at 13:30; Status DC Potassium Chloride/Sodium Chloride (KCl Inj/NS 1000 ml Inj) 1,010 ml @ 125 mls/ hr Q8H5M IV ; Start 09/08/16 at 12:45; Status UNV Ondansetron HCl (Zofran Inj) 4 mg Q8HR PRN IV PUSH NAUSEA; Start 09/08/16 at 12 :45; Stop 09/08/16 at 12:48; Status DC Acetaminophen (Tylenol) 650 mg Q4H PRN PO FEVER Last administered on 09/09/16 06:01; Start 09/08/16 at 12:45 Ondansetron HCl 4 mg 4 mg Q8H PRN IV PUSH NAUSEA; Start 09/08/16 at 12:48 Potassium Chloride/Sodium Chloride (NS + KCl 20 Meq Inj) 1,000 ml @ 75 mls/hr [id number] IV Last administered on 09/14/16 02:24; Start 09/08/16 at 13:00 Hydromorphone HCl (Dilaudid Pf Inj) 0.5 mg Q4H PRN IV PUSH PAIN < 5 Last administered on 09/13/16 18:22; Start 09/08/16 at 13:00 Hydromorphone HCl (Dilaudid Pf Inj) 1 mg Q4H PRN IV PUSH PAIN > 5 Last administered on 09/14/16 06:21; Start 09/08/16 at 13:00 Lorazepam 1 mg 1 mg Q4H PRN IV PUSH ANXIETY; Start 09/08/16 at 14:00 Thiamine HCl/ Sodium Chloride (Thiamine Inj/NS Inj) 101 ml @ 101 mls/hr DAILY IV Last administered on 09/13/16 09:24; Start 09/08/16 at 15:00; Stop 09/13/16 at 10:06; Status DC Enalaprilat (Vasotec Inj) 1.25 mg Q8H PRN IV PUSH SBP> OR = 180, DBP> OR = 100 ; Start 09/08/16 at 14:00 Pantoprazole Sodium (Protonix Inj) 40 mg Q24H IV PUSH Last administered on 15:38; Start 09/08/16 at 16:00 Influenza Virus Vaccine (Flu (Quadrivalent) Vaccine Inj) 0.5 ml ONCE ONCE IM Last administered on 09/09/16 08:43; Start 09/09/16 at 10:00; Stop 09/09/16 at 10:01; Status DC Pneumococcal Polyvalent Vaccine (Pneumovax-23 Inj) 25 mcg ONCE ONCE IM Last administered on 09/09/16 08:48; Start 09/09/16 at 10:00; Stop 09/09/16 at 10:01 ; Status DC Thiamine HCl (Vitamin B1) 100 mg DAILY PO Last administered on 09/14/16 08:59; Start 09/14/16 at 09:00 A/P Assessment and Plan A/P - acute pancreatitis due to alcohol- improving clinically MRCP with pancreatitis and peripancreatic fluid collection advance the diet to low-fat diet- continue pain control- GI follow-up appreciated- f/u with GI as outpatient. -leukocytosis/ fever due to pancreatitis-improved. -hypokalemia/ hyponatremia; replaced- -alcohol abuse; continue thiamine- counselled on drinking cessation. -hypertension; - resume norvasc upon discharge. -history of colon cancer- s/p colostomy -DVT prophylaxis with SCD's Discharge Planning dc home later today if tolerating the diet. see med list. f/u; pcp and GI. d/w the patient. Isabel Puentes MD Sep 14, 2016 09:34
[2016-09-14] MEDS ORDERED: NORC5TAB PO (09:35)
--- NOTE | 2016-09-14 09:36 | HHI.DS ---
Discharge Summary Admission Date Sep 08, 2016 at 12:41 Discharge Date: Sep 14, 2016 Admitting Diagnosis pancreatitis, leukocytosis, dehydration (1) Pancreatitis, alcoholic, acute ICD Code: K85.20 Diagnosis: Principal Procedures none Brief History - From Admission patient is a 60 y/o male with history of alcohol abuse who presented to ER with abdominal pain. he says that he drinks everyday. he started to have abdominal pain few days ago. pain is periumbilical with some radiation to epigastric area. pain is severe in intensity. he denies any nausea, vomiting, fever or chills. he says that he hasn't been eating as much past few days because of the pain. CBC/BMP: 09/12/16 0748 09/13/16 0748 Significant Findings Laboratory Tests Test 09/12/16 09/13/16 09/14/16 07:48 07:48 07:42 White Blood Count 12.1 TH/MM3 (4.0-11.0) Red Blood Count 3.29 MIL/MM3 (4.50-5.90) Hemoglobin 11.8 GM/DL (13.0-17.0) Hematocrit 35.7 % (39.0-51.0) Mean Corpuscular Volume 108.4 FL (80.0-100.0) Mean Corpuscular Hemoglobin 35.9 PG (27.0-34.0) Neutrophils (%) (Auto) 80.2 % (16.0-70.0) Monocytes (%) (Auto) 8.3 % (0.0-8.0) Neutrophils # (Auto) 9.7 TH/MM3 (1.8-7.7) Monocytes # (Auto) 1.0 TH/MM3 (0-0.9) Lipase 7269 U/L 700 U/L 652 U/L (73-393) (73-393) (73-393) Chloride Level 109 MEQ/L (98-107) Blood Urea Nitrogen 1 MG/DL (7-18) Creatinine 0.33 MG/DL (0.60-1.30) Random Glucose 125 MG/DL (74-106) Calcium Level 8.0 MG/DL (8.5-10.1) Imaging Last Impressions Cholangiopancreatography MRI 09/11/16 0000 Signed Impressions: Service Date/Time: September 07:52 - CONCLUSION: 1. Inflammatory changes head and neck of pancreas consistent with pancreatitis. 2. Peripancreatic fluid collections as described above. 3. No intra-or extrahepatic biliary ductal dilatation. Alvin Mccoy MD Abdomen/Pelvis CT 09/08/16 1046 Signed Impressions: Service Date/Time: Thursday, September 08, 2016 11:55 - CONCLUSION: 1. Extensive inflammatory changes consistent with pancreatitis. There is some adjacent fluid present. Correlation with amylase/lipase levels are recommended. 2. Stomal hernia and left colostomy. No bowel obstruction. 3. Cecum is mildly prominent 4. Right pleural effusion and right basilar density likely atelectasis. Alvin Mccoy MD PE at Discharge GENERAL: This is a well-nourished, well-developed patient, in no apparent distress. CARDIOVASCULAR: Regular rate and regular rhythm without murmurs, gallops, or rubs. RESPIRATORY: Clear to auscultation. Breath sounds equal bilaterally. No wheezes , rales, or rhonchi. GASTROINTESTINAL: Abdomen soft, minimal to mild tenderness, nondistended. Normal, active bowel sounds MUSCULOSKELETAL: Extremities without clubbing, cyanosis, or edema. NEURO: Alert & Oriented x4 to person, place, time, situation. Moves all ext x4 Hospital Course - acute pancreatitis due to alcohol- improving clinically MRCP with pancreatitis and peripancreatic fluid collection advance the diet to low-fat diet- continue pain control- GI follow-up appreciated- f/u with GI as outpatient. -leukocytosis/ fever due to pancreatitis-improved. -hypokalemia/ hyponatremia; replaced- -alcohol abuse; continue thiamine- counselled on drinking cessation. -hypertension; - resume norvasc upon discharge. -history of colon cancer- s/p colostomy -DVT prophylaxis with SCD's Pt Condition on Discharge: Good Discharge Disposition: Discharge Home Discharge Time: <= 30 minutes Discharge Instructions DIET: Follow Instructions for: Heart Healthy Diet, Low Fat Diet Activities you can perform: Regular-No Restrictions Follow up Referrals: Gastroenterology PCP Follow-up New Medications: Hydrocodone-Acetaminophen ([place]) 5-325 mg Tab 1 TAB PO Q6H PRN PAIN #10 Ref 0 TAB Multiple Vitamins W/ Minerals (Multivitamin Adults) 1 Tab 1 TAB PO DAILY Nutritional Supplement Days 30 Ref 0 TAB Pantoprazole (Protonix) 40 Mg Tab 40 MG PO DAILY Reflux #14 Ref 0 TAB Thiamine (Thiamine) 100 Mg Tab 100 MG PO DAILY Nutritional Supplement Days 30 Ref 0 TAB Continued Medications: Amlodipine (Amlodipine) 10 Mg Tab 10 MG PO DAILY Blood Pressure Management #30 Ref 0 TAB Lubiprostone (Amitiza) 8 Mcg Cap 24 MCG PO BID CAP Isabel Puentes MD Sep 14, 2016 09:36
[2016-09-14 12:00] VITALS: BP 177/91; PULSE 72; RESP 18; TEMP 99.1; O2SAT 96
[2016-09-14 23:52] LABS: IGG SUBCLASSES 4 26.6 mg/dL (4-86)
== END 2016-09-14 16:19 | disposition home or self-care (01) | DRG 439 ==
LOC: NEPE 10:23 → NEDA 12:41 → N04B 16:53
PROVIDERS: ADMIT Internal Medicine; ATTEND Internal Medicine
DX: K85.20 Alcohol induced acute pancreatitis without necrosis or infection (principal); K94.09 Other complications of colostomy; I10 Essential (primary) hypertension; E87.1 Hypo-osmolality and hyponatremia; Y83.8 Other surgical procedures as the cause of abnormal reaction of the patient, or of later complication, without mention of misadventure at the time of the procedure; K21.9 Gastro-esophageal reflux disease without esophagitis; E87.6 Hypokalemia; E86.0 Dehydration; F10.10 Alcohol abuse, uncomplicated; Z87.891 Personal history of nicotine dependence; Z85.038 Personal history of other malignant neoplasm of large intestine
CPT/HCPCS: 74176; 74181; 76377; 80048; 80053; 81001; 82784; 82787; 83690; 84478; 85025; 90686; 90732; 96374; 96375; C9113; J1170; J2270; J2405; J3411; J3480; J7030; Q2038

== ENCOUNTER → 2017-04-16 | Day surgery (SDC) | payer OTHER ==
[~2017-04-16] VITALS: Ht 188 cm; Wt 64.2 kg
[~2017-04-16] MED LIST: ACETAMINOPHEN 500 MG CPLT PO PRN; AMIT8CAP6 PO; AMLO10TA2 PO; ATROPINE SULFATE 1% OPHT SOLN 2 ML BTL ONE; BALANCED SALT SOLN OPHT IRRIG 15 ML BTL ONE; CHLORHEXIDINE GLUCONATE 2 % 1 PACK (2 CLOTHS) TOPICAL PRN; CYCLOPENTOLATE HCL 1% OPHT SOLN 2 ML BTL ONE; DEXAMETHASONE SOD PHOS 4 MG/ML VIAL ONE; DO NOT ADM ANY ANTICOAGULANT DRUGS PRN; EPINEPHrine HCL (1:1000) 1 MG/ML VIAL ONE; INSULIN HUMAN REGULAR 1,000 UNITS/10 ML VIAL SQ PRN; LACTATED RINGER'S 1000 ML IV PRN; LIDOCAINE HCL 1% PF 5 ML AMPULE OTHER ONE; METOPROLOL TARTRATE 25 MG TAB PO PRN; MULT1TAB84 PO; NORC5TAB PO; PHENYLEPH/NS 1000 MCG/10 ML SYR IV ONE; PHENYLEPHRINE HCL 2.5% OPTH SOLN 2 ML BTL ONE; POVIDONE IODINE 5% (ANTISEPSIS KIT) 4 APPLICATIONS EACH NARE PRN; PROPOFOL 200 MG/20 ML AMP IV ONE; PROT40TA PO; SODIUM CHLORID 0.9% 500 ML IV PRN; STERILE WATER FOR INJECTION 20 ML VIAL ONE; THIA100T PO; TOBRAMYCIN/DEXAMETHASONE OPTH OINT 3.5 GM TUBE LEFT EYE ONE; TRIAMCINOLONE ACETONIDE 40 MG/ML VIAL ONE; TROPICAMIDE 1% OPHT SOLN 15 ML BTL ONE; ceFAZolin INJ 1,000 MG VIAL ONE; ePHEDrine/NS 25 MG/5 ML SYR IV ONE; oxyCODONE/ACETAMINOPHEN 5 MG/325 MG TAB PO PRN
[2017-04-16 10:54] LABS: AUTOMATED NEUTROPHIL # 6.6 TH/MM3 (1.8-7.7); BASOPHIL % 0.4 % (0.0-2.0); EOSINOPHIL % 0.4 % (0.0-4.0); HEMATOCRIT 38.9 % (39.0-51.0); HEMO FLAGS DIFF FINAL; LYMPHOCYTE # 1.7 TH/MM3 (1.0-4.8); MEAN CELL VOLUME 97.1 FL (80.0-100.0); MEAN CORPUSCULAR HEMOGLOBIN 32.6 PG (27.0-34.0); MEAN CORPUSCULAR HGB CONC 33.6 % (32.0-36.0); MONO % 5.3 % (0.0-8.0); NEUT % 74.9 % (16.0-70.0); PLATELET COUNT 118 TH/MM3 (150-450); RED CELL DISTRIBUTION WIDTH 15.2 % (11.6-17.2); WHITE BLOOD COUNT 8.8 TH/MM3 (4.0-11.0)
[2017-04-16] MEDS: CYCLOPENTOLATE HCL 1% OPHT SOLN 2 ML BTL LEFT EYE SCH ×4 (12:10→12:55)
[2017-04-16] MEDS: PHENYLEPHRINE HCL 2.5% OPTH SOLN 2 ML BTL LEFT EYE SCH ×4 (12:10→12:55)
[2017-04-16] MEDS: ATROPINE SULFATE 1% OPHT SOLN 5 ML BTL LEFT EYE SCH ×4 (12:10→12:55)
[2017-04-16] MEDS: TROPICAMIDE 1% OPHT SOLN 15 ML BTL LEFT EYE SCH ×4 (12:10→12:55)
--- NOTE | 2017-04-16 14:39 | EKG ---
Date Performed: 04/16/2017 Time Performed: 09:02:57 PTAGE: 61 years EKG: Sinus rhythm WITH OCCASIONAL VENTRICULAR PREMATURE COMPLEXES MARKED LEFT AXIS DEVIATION INCOMPLETE RIGHT BUNDLE B RANCH BLOCK ABNORMAL ECG NO PREVIOUS TRACING DOCTOR: Brian Oates Interpretating Date/Time 04/16/2017 14:36:00
[2017-04-16 16:47] VITALS: BP 136/79; PULSE 62; RESP 20; TEMP 96.8; O2SAT 100
--- NOTE | 2017-04-17 14:06 | MP ---
cc: CARLIN CRONIN M.D. DATE OF SURGERY: 04/16/2017 PREOPERATIVE DIAGNOSIS Rhegmatogenous retinal detachment, left eye. POSTOPERATIVE DIAGNOSIS Rhegmatogenous retinal detachment, left eye. PROCEDURE Trans pars plana vitrectomy, internal drainage of subretinal fluid with the use of Perfluoron, laser retinopexy and gas-fluid exchange, left eye. SURGEON Dr. Carlin Cronin. ANESTHESIA General laryngeal mask anesthesia. INDICATION Mr. Youssef is a 61-year-old gentleman who developed a supranasal retinal detachment in his left eye approximately a week ago. It was suggested that he undergo a vitrectomy to repair this and he wished to proceed. Informed consent was obtained. No guarantee was made as to visual outcome. DETAILS OF PROCEDURE He was brought to operating room-1 and placed on the operating table. Appropriate anesthesia monitoring devices were applied and he was placed under general anesthesia using a laryngeal mask. The left eye was identified as the operative site and then prepped and draped in the usual sterile fashion. A lid speculum was placed. At this point an appropriate timeout was called with the surgical team agreeing to the proposed procedure and surgical site. Using the Chaitanya 23-gauge vitrectomy system the trocar cannulas were placed 3.5 mm posterior to the limbus after first displacing the conjunctiva and with a beveled entrance into the sclera. The first one was placed at approximately 3 o'clock and verified to be in the posterior chamber. A lid speculum was affixed to it and it was turned on. Two additional trocar cannulas were placed at 10 and 2 o'clock. The eye was entered with the endoilluminator light pipe and vitrectomy cutter and a vitrectomy was carried out. Scleral depression and the BIOM wide angle viewing system were used to remove the peripheral vitreous. The retinal breaks were in the supranasal quadrant. Perfluoron was used to flatten the retina. The Perfluoron was removed and exchanged for air. Limited laser was performed. A total of 685 laser spots using a power of 300 milliwatts and 0.1 second exposure was performed in the periphery. The air was then exchanged out for a 24% mixture of SF6. The cannulas were removed with tamponade of the site with a cotton swab and diathermy to the overlying conjunctival wound. Subconjunctival injections of Ancef 125 mg in a 0.5 cc and Decadron 2 mg in a 0.5 cc were given at separate sites. Atropine drops were placed on the cornea. The lid speculum was removed and the patient was undraped. TobraDex ointment was placed on the cornea and the left eye was patched and shielded. The patient had the laryngeal mask removed in the room and was returned to Recovery lying on his right side. When awake he will be asked to assume a face-down position. MD NATALIE Davison/FAHAD /11:30 AM /1:46 PM
== END | disposition home or self-care (01) ==
LOC: HSDC 08:10
PROVIDERS: ATTEND Ophthalmology
DX: H33.022 Retinal detachment with multiple breaks, left eye (principal); I10 Essential (primary) hypertension; Z01.810 Encounter for preprocedural cardiovascular examination; Z01.818 Encounter for other preprocedural examination
CPT/HCPCS: 00145; 67108; 85025; 93005; J0171; J0690; J1100; J2370; J3301; J7120

== ENCOUNTER → 2017-05-14 | Day surgery (SDC) | payer OTHER ==
[~2017-05-14] VITALS: Ht 188 cm; Wt 65.3 kg
[~2017-05-14] MED LIST changes: -AMIT8CAP6 PO; +ATROPINE SULFATE 1% OPHT SOLN 5 ML BTL LEFT EYE SCH; +BUPIVACAINE HCL PF 0.75% 10 ML VIAL ONE; +CYCLOPENTOLATE HCL 1% OPHT SOLN 2 ML BTL LEFT EYE SCH; -CYCLOPENTOLATE HCL 1% OPHT SOLN 2 ML BTL ONE; +DEXAMETHASONE SOD PHOS 20 MG/5 ML VIAL ONE; -DEXAMETHASONE SOD PHOS 4 MG/ML VIAL ONE; -EPINEPHrine HCL (1:1000) 1 MG/ML VIAL ONE; +EPINEPHrine HCL (1:1000) 30 MG/30 ML VIAL ONE; +LACTATED RINGER'S 1000 ML INJ 1,000 ML IV ONE; -MULT1TAB84 PO; -NORC5TAB PO; +ONDANSETRON HCL 4 MG/2 ML VIAL IM PRN; +ONDANSETRON HCL 4 MG/2 ML VIAL IV PUSH PRN; +PHENYLEPHRINE HCL 2.5% OPTH SOLN 2 ML BTL LEFT EYE SCH; -PHENYLEPHRINE HCL 2.5% OPTH SOLN 2 ML BTL ONE; -PROT40TA PO; -THIA100T PO; +TOBRAMYCIN 0.3%/DEXAMETHASONE 0.1% OPHT SUSP 5 ML BTL ONE; -TOBRAMYCIN/DEXAMETHASONE OPTH OINT 3.5 GM TUBE LEFT EYE ONE; +TOBRAMYCIN/DEXAMETHASONE OPTH OINT 3.5 GM TUBE ONE; -TRIAMCINOLONE ACETONIDE 40 MG/ML VIAL ONE; +TRIAMCINOLONE ACETONIDE/PF 40 MG/ML OPTH VIAL ONE; +TROPICAMIDE 1% OPHT SOLN 15 ML BTL LEFT EYE SCH; -TROPICAMIDE 1% OPHT SOLN 15 ML BTL ONE
[2017-05-14 12:15] VITALS: BP 130/72; PULSE 80; RESP 16; TEMP 97.8; O2SAT 100
--- NOTE | 2017-05-14 12:46 | MP ---
cc: CARLIN CRONIN M.D. DATE OF SURGERY 05/14/2017 PREOPERATIVE DIAGNOSIS Recurrent rhegmatogenous retinal detachment left eye. POSTOPERATIVE DIAGNOSIS Recurrent rhegmatogenous retinal detachment left eye. PROCEDURE Trans pars plana vitrectomy with scleral buckle procedure, endolaser photocoagulation and gas-fluid exchange, left eye. SURGEON Dr. Carlin Cronin ANESTHESIA General laryngeal mask anesthesia. INDICATIONS FOR PROCEDURE Mr. Youssef is a 61-year-old gentleman who had a retinal detachment repaired with a vitrectomy in mid-April. He returned on his 22-day postop visit with recurrent retinal detachment from approximately 12 to 6 o'clock. There is a question of compliance with the positioning. It was recommended that he undergo a scleral buckle and vitrectomy with gas-fluid exchange to reattach the retina. The risks and benefits of surgery were discussed with the patient. Informed consent was obtained. No guarantee was made as to visual outcome. OPERATIVE PROCEDURE He was brought to [facility] operating room #1 and placed on the operating table. Appropriate anesthesia monitoring devices were applied and he was placed under general anesthesia using a laryngeal mask. The left eye was identified as the operative site and then prepped and draped in usual sterile fashion. A lid speculum was placed. Using the blunt Juarez scissors and conjunctival forceps. A peritomy was done 360 degrees at the limbus with relaxing incisions at 11 and 5 o'clock. All four quadrants were opened with blunt dissection using the Juarez scissors. The four recti muscles were hooked on muscle hooks and transferred onto 4-0 black silk ties. A point of measurement at 13 mm posterior to the limbus was picked for the placement of the buckle and 5-0 polyester sutures were placed mattress style in all four quadrants at that posterior measurement. A 41 band was placed around the eye and through the sutures and secured with a 70 sleeve in the superior nasal quadrant. A three-port vitrectomy using the 23-gauge vitrectomy system was then carried out. The retina was flattened under Perfluoron and laser photocoagulation was placed around the periphery. A total of 745 laser spots was placed using a power of 250 milliwatts in 0.1-second exposure. The buckle was then sewn to the sclera and tightened with ends trimmed. The Perfluoron was removed and replaced with air and the air was replaced with a 15% mixture of C3F8 gas. The trocar cannulas were removed one by one and that site was closed with an interrupted 7-0 Vicryl. The orbit was irrigated with a mixture of tobramycin and 0.75% Marcaine without epinephrine. The recti muscle ties were removed. The conjunctiva was brought back up into place and closed using interrupted 7-0 chromic along the radial relaxing incisions. The globe was left with good pressure and no visible air leaks. Sub-Tenon's injections of Ancef 125 mg in 0.5 cc and Decadron 2 mg in 0.5 cc were given at separate sites. The lid speculum was removed. Atropine drops were placed on the cornea, followed by TobraDex ointment. The left eye was patched and shielded. The patient had a laryngeal mass removed in the room and was returned to Recovery in good condition laying on his right side. When awake and alert he will be asked to assume a face-down position. It should be noted that prior to the start of the operation an appropriate time-out was called with the surgical team agreeing to the proposed procedure and the surgical site. MD NATALIE Davison/AISHA /11:08 AM /12:34 PM
== END | disposition home or self-care (01) ==
LOC: HSDC 05:26
PROVIDERS: ATTEND Ophthalmology
DX: H33.002 Unspecified retinal detachment with retinal break, left eye (principal)
CPT/HCPCS: 00145; 67108; J0171; J0690; J1100; J2370; J3010; J7120; J3300

== ENCOUNTER → 2017-07-16 | Day surgery (SDC) | payer OTHER ==
[~2017-07-16] VITALS: Ht 188 cm; Wt 69.2 kg
[~2017-07-16] MED LIST changes: -ATROPINE SULFATE 1% OPHT SOLN 2 ML BTL ONE; -ATROPINE SULFATE 1% OPHT SOLN 5 ML BTL LEFT EYE SCH; -BUPIVACAINE HCL PF 0.75% 10 ML VIAL ONE; -CYCLOPENTOLATE HCL 1% OPHT SOLN 2 ML BTL LEFT EYE SCH; -DEXAMETHASONE SOD PHOS 20 MG/5 ML VIAL ONE; +DEXAMETHASONE SOD PHOS 4 MG/ML VIAL IV ONE; +DEXAMETHASONE SOD PHOS 4 MG/ML VIAL ONE; +EPINEPHrine HCL (1:1000) 1 MG/ML VIAL ONE; -EPINEPHrine HCL (1:1000) 30 MG/30 ML VIAL ONE; -INSULIN HUMAN REGULAR 1,000 UNITS/10 ML VIAL SQ PRN; -LACTATED RINGER'S 1000 ML INJ 1,000 ML IV ONE; -LIDOCAINE HCL 1% PF 5 ML AMPULE OTHER ONE; +LIDOCAINE HCL 1% PF 5 ML SYRINGE OTHER ONE; +MIDAZOLAM HCL 2 MG/2 ML VIAL ONE; +ONDANSETRON HCL 4 MG/2 ML VIAL IV PUSH ONE; -PHENYLEPH/NS 1000 MCG/10 ML SYR IV ONE; -PHENYLEPHRINE HCL 2.5% OPTH SOLN 2 ML BTL LEFT EYE SCH; -TOBRAMYCIN 0.3%/DEXAMETHASONE 0.1% OPHT SUSP 5 ML BTL ONE; -TROPICAMIDE 1% OPHT SOLN 15 ML BTL LEFT EYE SCH; -ePHEDrine/NS 25 MG/5 ML SYR IV ONE; +ePHEDrine/NS 25 MG/5 ML SYRINGE IV ONE
[2017-07-16] MEDS: CYCLOPENTOLATE HCL 1% OPHT SOLN 2 ML BTL LEFT EYE SCH ×4 (07:00→07:45)
[2017-07-16] MEDS: TROPICAMIDE 1% OPHT SOLN 15 ML BTL LEFT EYE SCH ×4 (07:00→07:45)
[2017-07-16] MEDS: ATROPINE SULFATE 1% OPHT SOLN 5 ML BTL LEFT EYE SCH ×4 (07:00→07:45)
[2017-07-16] MEDS: PHENYLEPHRINE HCL 2.5% OPTH SOLN 2 ML BTL LEFT EYE SCH ×4 (07:00→07:45)
[2017-07-16 07:02] LABS: AUTOMATED NEUTROPHIL # 5.2 TH/MM3 (1.8-7.7); BASOPHIL # 0.1 TH/MM3 (0-0.2); BASOPHIL % 0.6 % (0.0-2.0); EOSINOPHIL # 0.1 TH/MM3 (0-0.4); EOSINOPHIL % 1.9 % (0.0-4.0); HEMATOCRIT 41.9 % (39.0-51.0); HEMOGLOBIN 14.2 GM/DL (13.0-17.0); LYMPH % 25.8 % (9.0-44.0); LYMPHOCYTE # 2.1 TH/MM3 (1.0-4.8); MEAN CELL VOLUME 96.5 FL (80.0-100.0); MEAN CORPUSCULAR HEMOGLOBIN 32.7 PG (27.0-34.0); MEAN CORPUSCULAR HGB CONC 33.8 % (32.0-36.0); MEAN PLATELET VOLUME 9.8 FL (7.0-11.0); MONO % 7.4 % (0.0-8.0); MONOCYTE # 0.6 TH/MM3 (0-0.9); NEUT % 64.3 % (16.0-70.0); PLATELET COUNT 131 TH/MM3 (150-450); RED BLOOD COUNT 4.34 MIL/MM3 (4.50-5.90)
--- NOTE | 2017-07-16 10:57 | MP ---
cc: CARLIN CRONIN M.D. DATE OF SURGERY 07/16/2017 PREOPERATIVE DIAGNOSIS Recurrent rhegmatogenous retinal detachment with PVR left eye. POSTOPERATIVE DIAGNOSIS Recurrent rhegmatogenous retinal detachment with PVR left eye. PROCEDURE Trans pars plana vitrectomy, membranectomy, endolaser, photocoagulation and instillation of 1000 centistokes silicone oil left eye. SURGEON Dr. Carlin Cronin ANESTHESIA General laryngeal mask anesthesia. INDICATIONS FOR PROCEDURE Mr. Youssef is a 61-year-old gentleman with a history of recurrent rhegmatogenous retinal detachment in his left eye. He wished to proceed with a procedure to try and reattach the retina and he was consented for vitrectomy with silicone oil. No guarantee was made as to visual outcome. PROCEDURE The patient was brought to [facility] Operating Room #1 on the eye stretcher. Appropriate anesthesia monitoring devices were applied and he was placed under general anesthesia using a laryngeal mask. The left eye was identified as the operative site and then prepped and draped in the usual sterile fashion. A time-out was called and with the surgical team agreeing to the procedure and the planned surgical site, a lid speculum was placed and the microscope was brought around and adjusted. The eye was entered with a trocar cannula designed for the attachment of a chandelier infusion. This was done 3.5-mm posterior to the limbus at the 3:30 o'clock position. Two valve trocar cannulas were placed at 10 and 2 o'clock. There was residual Perfluoron in the anterior chamber so an MVR blade was used at the 11:30 o'clock position to create a beveled corneal incision to allow the vitrectomy instrument to be inserted into the anterior chamber and to suction out the Perfluoron bubbles. This incision was closed with an interrupted 10-0 nylon. The eye was then entered with the light pipe and vitrectomy cutter. There was no residual vitreous to be had. However, there was a membrane located temporal to the fovea which was causing traction on the retina. This was removed using both the Alton membrane scraper and the Pick forceps. There was an iatrogenic break temporal to the site. No additional areas of concern were noted so an air-fluid exchange was performed with drainage through the temporal break which was then treated with endolaser photocoagulation using a power of 300 milliwatts and 0.15-second exposure. A total of 172 spots were placed, not just around the break temporally but also on the inferior retina. The air was then exchanged for 1000 centistoke oil and iridectomy was performed in the inferior peripheral iris with a vitrectomy cutter at approximately 6 o'clock. Once the eye was filled with silicone the trocar cannulas were removed and each site closed with interrupted 7-0 Vicryl. This left the eye soft but formed and with no visible leaks through the sclerotomies. Subconjunctival injections of Ancef 125 mg in 0.5 cc and Decadron 2 mg in 0.5 cc were given at separate sites. The lid speculum was removed. The patient was undraped and TobraDex ointment was placed on the cornea and the left eye was then patched and shielded. The patient had the laryngeal mass removed in the room and was returned to Recovery in good condition in a sitting up position. Tonight at bedtime he will start face-down positioning. MD NATALIE Davison/AISHA /10:11 AM /2:18 PM
[2017-07-16 11:31] VITALS: BP 121/69; PULSE 71; RESP 18; TEMP 98.5; O2SAT 99
== END | disposition home or self-care (01) ==
LOC: HSDC 05:51
PROVIDERS: ATTEND Ophthalmology
DX: H33.42 Traction detachment of retina, left eye (principal); I10 Essential (primary) hypertension
CPT/HCPCS: 00145; 67113; 85025; C1814; J0171; J0690; J1100; J2250; J2405; J3010; J7120; J3300

== ENCOUNTER 2017-08-07 12:05 | Day surgery (SDC) | payer OTHER ==
[~2017-08-07] VITALS: Ht 188 cm; Wt 69.1 kg
[~2017-08-07 12:05] MED LIST changes: -ACETAMINOPHEN 500 MG CPLT PO PRN; -BALANCED SALT SOLN OPHT IRRIG 15 ML BTL ONE; -CHLORHEXIDINE GLUCONATE 2 % 1 PACK (2 CLOTHS) TOPICAL PRN; -DEXAMETHASONE SOD PHOS 4 MG/ML VIAL ONE; -DO NOT ADM ANY ANTICOAGULANT DRUGS PRN; -EPINEPHrine HCL (1:1000) 1 MG/ML VIAL ONE; -LACTATED RINGER'S 1000 ML IV PRN; -METOPROLOL TARTRATE 25 MG TAB PO PRN; -MIDAZOLAM HCL 2 MG/2 ML VIAL ONE; -ONDANSETRON HCL 4 MG/2 ML VIAL IM PRN; -ONDANSETRON HCL 4 MG/2 ML VIAL IV PUSH PRN; +PHENYLEPH/NS 1000 MCG/10 ML SYR IV ONE; -POVIDONE IODINE 5% (ANTISEPSIS KIT) 4 APPLICATIONS EACH NARE PRN; -SODIUM CHLORID 0.9% 500 ML IV PRN; -STERILE WATER FOR INJECTION 20 ML VIAL ONE; -TOBRAMYCIN/DEXAMETHASONE OPTH OINT 3.5 GM TUBE ONE; -TRIAMCINOLONE ACETONIDE/PF 40 MG/ML OPTH VIAL ONE; -ceFAZolin INJ 1,000 MG VIAL ONE; -oxyCODONE/ACETAMINOPHEN 5 MG/325 MG TAB PO PRN
[2017-08-07] MEDS ORDERED: METOPROLOL TARTRATE 25 MG TAB PO PRN (13:15)
[2017-08-07] MEDS ORDERED: CHLORHEXIDINE GLUCONATE 2 % 1 PACK (2 CLOTHS) TOPICAL PRN (13:15)
[2017-08-07] MEDS ORDERED: SODIUM CHLORID 0.9% 500 ML IV PRN (13:15)
[2017-08-07] MEDS ORDERED: LACTATED RINGER'S 1000 ML IV PRN (13:15)
[2017-08-07] MEDS ORDERED: POVIDONE IODINE 5% (ANTISEPSIS KIT) 4 APPLICATIONS EACH NARE PRN (13:15)
[2017-08-07] MEDS ORDERED: ATROPINE SULFATE 1% OPHT SOLN 2 ML BTL ONE ×2 (13:33→14:44)
[2017-08-07] MEDS: TROPICAMIDE 1% OPHT SOLN 15 ML BTL RIGHT EYE SCH ×4 (14:00→14:45)
[2017-08-07] MEDS: ATROPINE SULFATE 1% OPHT SOLN 5 ML BTL RIGHT EYE SCH ×4 (14:00→14:45)
[2017-08-07] MEDS: PHENYLEPHRINE HCL 2.5% OPTH SOLN 2 ML BTL RIGHT EYE SCH ×4 (14:00→14:45)
[2017-08-07] MEDS: CYCLOPENTOLATE HCL 1% OPHT SOLN 2 ML BTL RIGHT EYE SCH ×4 (14:00→14:45)
[2017-08-07] MEDS ORDERED: BALANCED SALT SOLN OPHT IRRIG 15 ML BTL ONE (14:43)
[2017-08-07] MEDS ORDERED: DEXAMETHASONE SOD PHOS 4 MG/ML VIAL ONE (14:44)
[2017-08-07] MEDS ORDERED: ceFAZolin INJ 1,000 MG VIAL ONE (14:44)
[2017-08-07] MEDS ORDERED: EPINEPHrine HCL (1:1000) 1 MG/ML VIAL ONE (14:44)
[2017-08-07] MEDS ORDERED: TOBRAMYCIN/DEXAMETHASONE OPTH OINT 3.5 GM TUBE ONE (14:44)
[2017-08-07] MEDS ORDERED: TRIAMCINOLONE ACETONIDE 40 MG/ML VIAL ONE (14:44)
[2017-08-07] MEDS ORDERED: STERILE WATER FOR INJECTION 20 ML VIAL ONE (16:41)
[2017-08-07] MEDS ORDERED: prednisoLONE ACETATE 1% OPHT SUSP 5 ML BTL RIGHT EYE SCH ×2 (17:00→21:00)
[2017-08-07] MEDS ORDERED: MOXIFLOXACIN 0.5% OPHT SOLN 3 ML BTL RIGHT EYE SCH ×2 (17:00→21:00)
[2017-08-07] MEDS ORDERED: oxyCODONE/ACETAMINOPHEN 5 MG/325 MG TAB PO PRN (19:00)
[2017-08-07] MEDS ORDERED: DO NOT ADM ANY ANTICOAGULANT DRUGS PRN (19:15)
[2017-08-07 19:30] VITALS: BP 146/68
[2017-08-07 19:45] VITALS: PULSE 72; RESP 16; TEMP 98.2; O2SAT 99
[2017-08-07] MEDS ORDERED: ATROPINE SULFATE 1% OPHT SOLN 5 ML BTL RIGHT EYE SCH (21:00)
--- NOTE | 2017-08-14 07:55 | MP ---
cc: TAY SZYMANSKI MD DATE OF SURGERY August 07, 2017 PREOPERATIVE DIAGNOSIS Macular affecting superior retinal detachment with multiple tears right eye. 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 PROCEDURE Pars plana vitrectomy, retinal detachment repair, endolaser, insertion of 10% C3F8 gas, right eye. COMPLICATIONS None. BLOOD LOSS Less than [address] Rolle general. COMPLICATIONS None. INDICATION FOR PROCEDURE This is a delightful patient who presented with large retinal detachment entering his macula on the right eye. The patient elected for surgical repair. PROCEDURE NOTE After informed consent was obtained, the patient was brought to the operating room. General anesthesia was established and the right eye was prepped and draped in sterile fashion with Betadine in the conjunctival fornix. A three-port pars vitrectomy was established with self-retaining infusion cannula. Core vitreous was evacuated. Vitreous traction of the peripheral retina was relieved with careful vitrectomy and scleral depression for 360 degrees. Multiple retinal tears were identified. PFO was instilled and retina reattached. Endolaser was applied 360 degrees taking care to surround all retinal breaks. Air-fluid exchange was carried out and PFO removed. The retina remained nicely attached. Scleral depression examination revealed no untreated retinal holes, tears or detachments. 10% C3F8 gas was instilled and trocars and removed. Sclerotomies were closed. Subconjunctival injection of Ancef and dexamethasone were given. The eye was patched with Tobramycin ointment. The patient was brought to the recovery room in stable condition. He will continue followup with [facility] for his postoperative care. Tay Szymanski MD KW/SSB /5:26 PM /7:37 AM
== END 2017-08-07 19:55 | disposition home or self-care (01) ==
LOC: HSDC 12:05
PROVIDERS: ATTEND Ophthalmology
DX: H33.021 Retinal detachment with multiple breaks, right eye (principal); H43.821 Vitreomacular adhesion, right eye; I10 Essential (primary) hypertension
CPT/HCPCS: 00145; 67108; J0171; J0690; J1100; J2370; J2405; J3010; J7120; J3301